=== PATIENT | male | born 1945 | race Caucasian/White ===

== ENCOUNTER 2020-09-28 08:00 | Outpatient (REF) | payer MEDICARE, SELFPAY ==
[2020-09-28 08:20] LABS: MANUAL DIFF FLAG NO
[2020-09-28 08:27] LABS: Basophils Percent Auto 0.3 % (0-2); Eosinophils Absolute Auto 0.4 X10*3/uL (0.0-0.4); Eosinophils Percent Auto 4.5 % (0-4); Hematocrit 45.9 % (42-52); Hemoglobin 15.4 g/dl (14.0-18.0); Imm Gran Abs Auto 0.05 X10*3/uL (0.00-0.03); Imm Gran Pct Auto 0.5 % (0.0-0.4); Lymphocytes Absolute Auto 2.2 X10*3/uL (1.2-4.9); Lymphocytes Percent Auto 23.1 % (20-40); Mean Corpuscular HGB Conc 33.6 g/dl (31.0-36.0); Mean Corpuscular Hemoglobin 30.6 pg (27.0-33.0); Mean Corpuscular Volume 91.1 fL (80-98); Mean Platelet Volume 10.3 fL (9.4-12.4); Monocytes Absolute Auto 0.7 X10*3/uL (0.1-1.2); Monocytes Percent Auto 7.6 % (2-11); Platelet Count 150 X10*3/uL (160-400); Red Blood Count 5.04 X10*6/uL (4.60-5.80); Red Cell Distribution Width 13.2 % (11.0-16.0); White Blood Count 9.4 X10*3/uL (4.8-10.8)
[2020-09-28 08:54] LABS: Estimated Average Glucose 166 mg/dL; Hemoglobin A1c % 7.4 %
[2020-09-28 08:55] LABS: Alanine Aminotransferase 21 U/L (0-40); Albumin Level 3.6 g/dL (3.5-5.0); Alkaline Phosphatase 84 U/L (39-117); Anion Gap 12 (12-20); Aspartate Amino Transferase 18 U/L (5-37); Bilirubin Total 0.5 mg/dL (0.0-1.0); Blood Urea Nitrogen 24 mg/dL (9-16); Calcium 8.7 mg/dL (8.4-10.2); Carbon Dioxide 26 mmol/L (22-29); Chloride 107 mmol/L (96-108); Cholesterol 155 mg/dL; Estimated Glomerular Filt Rate > 60; Glucose Random 64 mg/dL (60-115); HDL Cholesterol 43 mg/dL; LDL Cholesterol Calculated 67 mg/dl; Potassium 4.5 mmol/L (3.3-5.1); Sodium 140 mmol/L (135-145); Total Protein 5.8 g/dL (6.5-8.0); Triglycerides 228 mg/dL
[2020-09-28 08:57] LABS: Creatinine Urine 61.36 mg/dL
[2020-09-28 09:02] LABS: B Type Natriuretic Peptide 150 pg/mL (<100)
[2020-09-28 09:17] LABS: Free T4 (Free Thyroxine) 0.83 ng/dL (0.71-1.85); Prostate Specific Antigen Scr 1.73 ng/mL (<0.05-4.0); Thyroid Stimulating Hormone 1.79 uIU/mL (0.32-4.0)
[2020-09-30 04:39] LABS: Folate 14.7 ng/mL (> or = 4.0); Vitamin B12 < 146 pg/mL (200-900)
== END 2020-09-28 08:01 | disposition home or self-care (01) ==
LOC: HO.LAB 08:00
PROVIDERS: PCP Internal Medicine; Visit Provider Internal Medicine
DX: Z12.5 Encounter for screening for malignant neoplasm of prostate (principal); N40.1 Benign prostatic hyperplasia with lower urinary tract symptoms; R35.0 Frequency of micturition; I10 Essential (primary) hypertension; I25.10 Atherosclerotic heart disease of native coronary artery without angina pectoris; E78.00 Pure hypercholesterolemia, unspecified; E11.65 Type 2 diabetes mellitus with hyperglycemia; Z79.4 Long term (current) use of insulin
CPT/HCPCS: 36415; 80053; 80061; 82043; 82607; 82746; 83036; 83880; 84153; 84439; 84443; 85025

== ENCOUNTER 2021-04-01 07:31 | Outpatient (REF) | payer MEDICARE, SELFPAY ==
[2021-04-01 07:46] LABS: MANUAL DIFF FLAG NO
[2021-04-01 08:08] LABS: Basophils Absolute Auto 0.1 X10*3/uL (0.0-0.2); Basophils Percent Auto 0.6 % (0-2); Eosinophils Absolute Auto 0.6 X10*3/uL (0.0-0.4); Eosinophils Percent Auto 7.3 % (0-4); Hemoglobin 15.3 g/dl (14.0-18.0); Imm Gran Abs Auto 0.06 X10*3/uL (0.00-0.03); Imm Gran Pct Auto 0.7 % (0.0-0.4); Lymphocytes Absolute Auto 1.6 X10*3/uL (1.2-4.9); Lymphocytes Percent Auto 18.3 % (20-40); Mean Corpuscular Hemoglobin 31.4 pg (27.0-33.0); Mean Corpuscular Volume 92.2 fL (80.0-98.0); Mean Platelet Volume 10.3 fL (9.4-12.4); Monocytes Absolute Auto 0.6 X10*3/uL (0.1-1.2); Neutrophils Absolute Auto 5.7 x10*3/uL (2.0-8.3); Neutrophils Percent Auto 66.1 % (45-73); Platelet Count 161 X10*3/uL (160-400); Red Blood Count 4.88 X10*6/uL (4.60-5.80); White Blood Count 8.7 X10*3/uL (4.8-10.8)
[2021-04-01 09:12] LABS: Vitamin B12 478 pg/mL (200-900)
[2021-04-01 09:59] LABS: Creatinine Urine 67.64 mg/dL
[2021-04-05 21:41] LABS: Intrinsic Factor Antibodies Negative (Negative)
[2021-04-08 23:42] LABS: Parietal Cell Antibody <=20.0 Unit (<=20.0)
== END 2021-04-01 07:32 | disposition home or self-care (01) ==
LOC: HO.LAB 07:31
PROVIDERS: PCP Internal Medicine; Visit Provider Internal Medicine
DX: E53.8 Deficiency of other specified B group vitamins (principal); E11.65 Type 2 diabetes mellitus with hyperglycemia
CPT/HCPCS: 36415; 82607; 82746; 83516; 85025; 86340

== ENCOUNTER 2021-04-10 15:55 | Outpatient (REF) | payer MEDICARE, SELFPAY ==
--- NOTE | ~2021-04-10 | XR_ITS ---
EXAMINATION: XR CHEST CLINICAL INFORMATION: Wheezing. COMPARISON: 11/06/2016 TECHNIQUE: 2 views of the chest were obtained. FINDINGS: No convincing evidence for an acute process. Some probable chronic markings in the lower lung and anterior lung zone based on the lateral film. The cardiac silhouette is within normal limits. The hilar regions are comparable. Ill-defined central hilar structures may indicate central airways disease. XR/XR chest 2V IMPRESSION: No convincing evidence for an acute finding. Ill-defined central hilar regions may indicate central airway changes. No convincing evidence of an acute peripheral infiltrate.
== END 2021-04-10 15:56 | disposition home or self-care (01) ==
LOC: HO.XRAY 15:55
PROVIDERS: PCP Internal Medicine; Visit Provider Internal Medicine
DX: R06.2 Wheezing (principal)
CPT/HCPCS: 71046

== ENCOUNTER 2021-04-11 14:50 | Outpatient (REF) | payer MEDICARE, SELFPAY ==
--- NOTE | ~2021-04-11 | CT_ITS ---
EXAMINATION: CT HEAD WITHOUT CONTRAST CLINICAL INFORMATION: Slurred speech COMPARISON: None TECHNIQUE: Contiguous axial imaging was performed from the skull base to vertex without intravenous administration of contrast. This CT examination was performed using dose optimization techniques as appropriate, variously including the following: *Automated exposure control *Adjustment of mA and/or kV according to patient size (this includes techniques or standardized protocols for targeted exams where dose is matched to indication/reason for exam; i.e. extremities or head) *Use of iterative reconstruction technique DLP: 843 mGy-cm FINDINGS: There is no evidence of acute intracranial hemorrhage or territorial infarction. No abnormal mass effect or midline shift is seen. Stiles to white matter differentiation is well preserved. No extra-axial fluid collections are identified. The ventricles are symmetrical in size but mildly enlarged. There is diffuse periventricular hypodensity suggestive of chronic small vessel ischemic changes The osseous structures and soft tissues are normal. The mastoid air cells and visualized portions of the paranasal sinuses are well aerated. CT/CT head/brain wo con IMPRESSION: No acute intracranial process seen.
== END 2021-04-11 14:51 | disposition home or self-care (01) ==
LOC: HO.CT 14:50
PROVIDERS: PCP Internal Medicine; Visit Provider Internal Medicine
DX: R20.0 Anesthesia of skin (principal); R47.81 Slurred speech
CPT/HCPCS: 70450

== ENCOUNTER 2021-04-17 12:50 | Outpatient (REF) | payer MEDICARE, SELFPAY ==
--- NOTE | ~2021-04-17 | US_ITS ---
EXAMINATION: US EXTRACRANIAL CAROTID DUPLEX, BILATERAL CLINICAL INFORMATION: Slurred speech COMPARISON: None TECHNIQUE: Real-time ultrasound and Doppler techniques (integrating B-mode 2-D vascular images, Doppler spectral analysis and color-flow Doppler imaging) were utilized to interrogate the extracranial carotid arteries, the vertebral arteries and proximal subclavian arteries bilaterally. The degree of stenosis is determined by criteria similar to NASCET. FINDINGS: Right Side: 1. There is calcified, shadowing atherosclerotic plaque seen in the bifurcation/proximal ICA region. 2. The common carotid artery PSV proximally is 93.8 cm/s and distally 55 cm/s. 3. The proximal internal carotid artery velocities are 42.8 cm/s systolic and 13.8 cm/s diastolic. 4. The proximal external carotid artery PSV is 172 cm/s. 5. The vertebral artery shows antegrade flow. 6. The subclavian artery waveforms are normal. Left Side: 1. There is calcified, shadowing atherosclerotic plaque seen in the bifurcation/proximal ICA region. 2. The common carotid artery PSV proximally is 123 cm/s and distally 64 cm/s. 3. The proximal internal carotid artery velocities are 89.7 cm/s systolic and 26.4 cm/s diastolic. 4. The proximal external carotid artery PSV is 240 cm/s. 5. The vertebral artery was visualized on live ultrasound, and technologist report describes antegrade flow, though no image documented. 6. The subclavian artery waveforms are normal. US/US carotid duplex BI IMPRESSION: 1. RIGHT: Minimal, non-hemodynamically significant stenosis of the proximal right internal carotid artery corresponding to a 0-49% stenosis by velocity criteria. 2. LEFT: Minimal, non-hemodynamically significant stenosis of the proximal left internal carotid artery corresponding to a 0-49% stenosis by velocity criteria. 3. Probable stenosis of the left external carotid artery
== END 2021-04-17 12:51 | disposition home or self-care (01) ==
LOC: HO.HMGCX 12:50
PROVIDERS: PCP Internal Medicine; Visit Provider Internal Medicine
DX: R47.81 Slurred speech (principal); R20.0 Anesthesia of skin
CPT/HCPCS: 93880

== ENCOUNTER → 2021-05-28 09:18 | Outpatient (REF) | payer MEDICARE, SELFPAY ==
--- NOTE | 2021-05-28 09:23 | CA_ITS ---
Transthoracic Echocardiogram Patient (Last, First, Middle): Eleuterio Uribe J Gender: Male Date of : 1945 Age: 76 Procedure Date: 05/28/2021 Procedure Type: Transthoracic Echocardiogram Location: OP Height: 175.26 cm Weight: 95.26 kg BSA: 2.11 m2 Heart Rate: bpm BP: 160 / 76 mmHg Putaway Driver: DANYA Referring MD: Monica Price MD Symptoms: I25.10 - Atherosclerotic heart disease of [place] coronary... Study Quality: Fair ECG Rhythm: Sinus Conclusions: - The left ventricular systolic function is normal. The calculated ejection fraction is 57% by biplane method. - Moderate to severe left ventricular hypertrophy. - There is mild calcification of the aortic valve. - There is mild mitral valve regurgitation. - Small plaque is seen in the sinuses of Valsalva. Findings Left Ventricle Normal left ventricular cavity size. The left ventricular systolic function is normal. The calculated ejection fraction is 57% by biplane method. There is no evidence of regional wall motion abnormalities. E/E prime ratio is between 8 and 15 consistent with indeterminate filling pressures. Evidence suggests grade I (mild) diastolic dysfunction. Moderate to severe left ventricular hypertrophy. Right Ventricle Normal right ventricular cavity size and systolic function. Atria Both atria are normal in size. Aortic Valve There is a normal trileaflet aortic valve. There is mild calcification of the aortic valve. There is no aortic valve stenosis. There is no aortic valve regurgitation. Mitral Valve There is mild mitral annular calcification. There is mild mitral valve regurgitation. There is no mitral valve stenosis. Pulmonic Valve The pulmonic valve was not well visualized. Tricuspid Valve There is trace tricuspid valve regurgitation. The pulmonary artery systolic pressure is normal. Great Vessels The aortic annulus and sinuses of valsalva are normal in size. Small plaque is seen in the sinuses of Valsalva. Venous The inferior vena cava is normal in size and collapses greater than 50% with inspiration. Pericardium/Pleural There is no evidence of pericardial effusion. Prior Study Comparison Changes noted compared to prior study dated: 09/25/2013. Progression of LVH. Measurements 2D Linear Measurements IVSd: 1.76 0.6-0.9/0.6-1.0 cm LVIDd: 4.86 3.9-5.3/4.2-5.9 cm LVIDd Index: 2.30 2.4-3.2/2.2-3.1 cm/m2 LVIDs: 3.16 2.0-3.6 cm LVPWd: 1.79 0.7-1.1 cm Ao Root: 3.70 2.1-3.5 cm LA Diam: 4.20 2.7-3.8/3.0-4.0 cm LAIDs Index: 1.99 1.5-2.3 cm/m2 LV Mass: 499.23 67-162/88-224 g LV Mass Index: 236.60 43-95/49-115 g/m2 LVOT Diam: 2.20 3.0+(-)1.3 cm 2D Systolic Function EF 4C: 56.20 >55% EF 2C: 58.00 >55% EF BiP: 56.60 >55% Mitral Valve MV Pk E: 0.67 MV PK A: 0.83 MV Decel Time: 227.00 E/A: 0.80 E'Lateral: 5.11 E'Medial: 4.35 E/E' Med: 15.30 E/E' Lat: 13.10 PHT: 67.00 MVA PHT: 3.28 Decel Richardson: 2.93 Aortic Valve AoV Pk Jose: 1.38 AoV Mn Jose: 1.05 AoV VTI: 0.35 AoV Pk Grad: 8.00 Aov Mn Grad: 5.00 ALINE Cont.VTI: 2.43 LVOT LVOT Pk Jose: 0.98 LVOT Mn Jose: 0.71 LVOT VTI: 0.22 LVOT Pk Grad: 4.00 LVOT Mn Grad: 2.00 LVOT Diam: 2.20 LVOT Area: 3.80 Diastolic Function MV Pk E: 0.67 MV Pk A: 0.83 E/A: 0.80 E'Medial: 4.35 E/E' Med: 15.30 E' Laterial: 5.11 E/E' Lat: 13.10 Right Ventricle TAPSE (mm): 19.30 TVS' Jose: 12.70 Tricuspid Valve TR Pk Jose: 1.22 TR Pk Grad: 6.00 RA Press: 3.00 RVSP: 9.00 Great Vessels Aorta Ao Root-2D: 3.70 2.0-3.7 cm Ao Asc: 3.50 2.1-3.4 cm Ao Arch: 3.10 Updated in Other Vendor System with Status of Final Jan Whittington MD electronically signed on 05/30/2021 3:53:24 PM with status of Final
== END ==
LOC: HO.CARD 09:18
PROVIDERS: PCP Internal Medicine; Visit Provider Internal Medicine
DX: I25.10 Atherosclerotic heart disease of native coronary artery without angina pectoris (principal)
CPT/HCPCS: 93306

== ENCOUNTER 2021-05-28 12:56 | Emergency (ER) | payer MEDICARE, SELFPAY ==
--- NOTE | ~2021-05-28 | MR_ITS ---
EXAMINATION: MR BRAIN WITHOUT CONTRAST CLINICAL INFORMATION: Dizziness. Cerebellar cerebrovascular accident. COMPARISON: CT head from 04/11/2021. TECHNIQUE: MRI of the brain was obtained using routine sequences without contrast. FINDINGS: No focal restricted diffusion is demonstrated to suggest acute or subacute cerebral ischemia. There is a region of subcortical diffusion weighted hyperintensity involving the left precentral gyrus with increased ADC values consistent with chronic encephalomalacia. Changes of laminar necrosis in the adjacent cortex of the left precentral gyrus. Few additional scattered foci of susceptibility artifact No evidence of acute hemorrhagic products on heme-sensitive imaging. Scattered periventricular, deep white matter, and brainstem T2 FLAIR hyperintensities consistent with moderate underlying microangiopathy. Proportional prominence of the ventricles and sulcal spaces without evidence of obstructive hydrocephalus. No abnormal mass effect. No midline shift. Normal appearance of the pituitary gland. Normal positioning of the cerebellar tonsils. Normal arterial and venous vascular flow voids are present. Normal, homogeneous marrow signal. Moderate degenerative spondyloarthropathy of the visualized upper cervical spine. Mild degenerative retrolisthesis of C2 on C3. Moderate mucosal thickening of the paranasal sinuses. Moderate leftward nasal septal deviation. No signal abnormalities within the mastoids. Bilateral lens extractions. MR/MR head/brain wo con IMPRESSION: 1. No acute intracranial abnormalities. 2. Small region of chronic encephalomalacia with adjacent laminar necrosis in the left precentral gyrus. Moderate underlying microangiopathy and generalized cerebral volume loss.
[2021-05-28 13:59] VITALS: BP 153/62; PULSE 66; RESP 16; TEMP 36.9; O2SAT 96; BMI 31.1
[2021-05-28 14:09] LABS: MANUAL DIFF FLAG NO
[2021-05-28 14:14] LABS: Basophils Percent Auto 0.4 % (0-2); Eosinophils Absolute Auto 0.4 X10*3/uL (0.0-0.4); Eosinophils Percent Auto 3.8 % (0-4); Hematocrit 44.4 % (42.0-52.0); Hemoglobin 14.4 g/dl (14.0-18.0); Imm Gran Abs Auto 0.04 X10*3/uL (0.00-0.03); Imm Gran Pct Auto 0.4 % (0.0-0.4); Lymphocytes Absolute Auto 1.8 X10*3/uL (1.2-4.9); Lymphocytes Percent Auto 16.6 % (20-40); Mean Corpuscular HGB Conc 32.4 g/dl (31.0-36.0); Mean Corpuscular Hemoglobin 29.9 pg (27.0-33.0); Mean Corpuscular Volume 92.1 fL (80.0-98.0); Mean Platelet Volume 10.1 fL (9.4-12.4); Monocytes Absolute Auto 0.8 X10*3/uL (0.1-1.2); Monocytes Percent Auto 6.8 % (2-11); Neutrophils Absolute Auto 7.9 x10*3/uL (2.0-8.3); Platelet Count 148 X10*3/uL (160-400); Red Blood Count 4.82 X10*6/uL (4.60-5.80); Red Cell Distribution Width 13.8 % (11.0-16.0)
[2021-05-28 14:30] LABS: COVID-19 Test Negative (Negative)
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
[2021-05-28 14:42] LABS: Anion Gap 14 (12-20); Blood Urea Nitrogen 29 mg/dL (9-16); Calcium 8.4 mg/dL (8.4-10.2); Carbon Dioxide 24 mmol/L (22-29); Chloride 108 mmol/L (96-108); Creatinine Clr Calc Pharmacy 40.3; Estimated Glomerular Filt Rate 40; Glucose Random 43 mg/dL (60-115); Potassium 5.4 mmol/L (3.3-5.1); Sodium 141 mmol/L (135-145)
[2021-05-28 15:00] VITALS: BP 164/69; PULSE 67; RESP 16; TEMP 36.5; O2SAT 96
--- NOTE | 2021-05-28 15:01 | PC.NURSE ---
a&ox3, slight dysarthria, ataxia to the left. provider and stroke nurse in room w pt.
--- NOTE | 2021-05-28 15:09 | MHC.STROKE ---
Addendum entered by Licha Mathis RN 05/28/21 17:11: I REVIEWED MRI WITH DR POPE. HE IS RECOMMENDING TO CONTINUE ASPIRIN AND PLAVIX, PATIENT SHOULD BE EVALUATED BY PT AND OT, HE MENTIONED HIS GAIT IS OFF DUE TO DIFFICULTIES WITH SPACIAL FOOTING. PATIENT WON'T NEED A CAROTID US DONE 04/17/21, OR ECHO DONE TODAY 05/28/21 (PLEASE EVALUATE THE ECHO RESULTS WHEN AVAILABLE). I TRIED TO TOUCH BASE WITH THE BUT SHE WAS NOT IN THE ROOM. I REPORTED THIS INFORMATION TO DR BARKER. Addendum entered by Licha Mathis RN 05/28/21 15:34: MOST CURRENT LAST KNOWN WELL WAS 05/27/21 AT 1200 (YESTERDAY). Original Note: [place] [facility] [place] THE CALLED DR COLLAZO DUE HER BEING VERY DIZZY, AND SLOW WITH HIS WORDS. HE WENT TO DR COLLAZO'S OFFICE, THEN TO DR. POPE'S OFFICE FOR A STAT NEUROLOGY VISIT. DR POPE SENT HIM TO THE ED FOR A STROKE WORK UP AND MRI TO CLARIFY HIS SYMTPOMS. DR POPE DOES NOT WANT ANOTHER CT HEAD BASED ON HIS EXAM. MRI WAS NOTIFIED. SCREENING FORM COMPLETED. THE PATIENT HAS BEEN FEELING OFF FOR 10-11 DAYS, MOSTLY HIS BALANCE BUT BECAME WORSE YESTERDAY. HE WAS AMBULATED AND IS LEANING TO THE LEFT AND IS UNSTEADY ON HIS FEET, HE CANOT WALK ALONE. HE HAD A CT HEAD 04/11/21, CAROTID US 04/17/21 AND AN ECHO TODAY. PATIENT SAYS HE FEELS DRUNK BUT HE DOES NOT DRINK. IS EXPERIENCING ATAXIA AND DYSARTHRIA. HE PASSED HIS SWALLOW SCREEN PRIOR TO ANY PO, DONE DURING TRIAGE. HE HAS NOT TAKEN ANY OF HIS MEDICAITONS. DR BARKER AT THE BEDSIDE, STACY TRUJILLO, HE IS BEING TREATED. I DID PROVIDE STROKE EDUCATION AND REVIEWED ALL OF HIS RISK FACTORS. I HAVE UPDATED THE NURSES. I WILL CONTINUE TO FOLLOW.
[2021-05-28 15:11] LABS: Glucose, Whole Blood 45 mg/dL (60-115)
[2021-05-28 15:21] LABS: Glucose, Whole Blood 57 mg/dL (60-115)
[2021-05-28] MEDS: Aspirin 81 MG TAB.CHEW PO (15:22)
[2021-05-28] MEDS: Dextrose 50 % 25 GM/50 ML SYRINGE IVPUSH (15:22)
[2021-05-28] MEDS: Clopidogrel Bisulfate 75 MG TABLET PO (15:23)
[2021-05-28 15:50] VITALS: BP 167/61; PULSE 56; RESP 16; TEMP 36.3; O2SAT 97
[2021-05-28 15:52] LABS: Glucose, Whole Blood 140 mg/dL (60-115)
[2021-05-28 17:20] LABS: Glucose, Whole Blood 127 mg/dL (60-115)
[2021-05-28 18:00] VITALS: BP 177/72; PULSE 57; RESP 16; TEMP 36.6; O2SAT 97
== END 2021-05-28 19:01 | disposition home or self-care (01) ==
PROVIDERS: Emergency Provider Internal Medicine
DX: E11.649 Type 2 diabetes mellitus with hypoglycemia without coma (principal); R42 Dizziness and giddiness; I10 Essential (primary) hypertension; E78.5 Hyperlipidemia, unspecified; Z87.820 Personal history of traumatic brain injury; Z87.891 Personal history of nicotine dependence; Z79.82 Long term (current) use of aspirin; Z79.01 Long term (current) use of anticoagulants; Z79.4 Long term (current) use of insulin; Z20.822 Contact with and (suspected) exposure to COVID-19
CPT/HCPCS: 36415; 70551; 80048; 82947; 85025; 85610; 85730; 87635; 99284; 99285

== ENCOUNTER 2021-07-09 09:57 | Outpatient (REF) | payer MEDICARE, SELFPAY ==
[2021-07-09 11:49] LABS: Alanine Aminotransferase 23 U/L (0-40); Albumin Level 3.6 g/dL (3.5-5.0); Alkaline Phosphatase 107 U/L (39-117); Anion Gap 13 (12-20); Aspartate Amino Transferase 20 U/L (5-37); Bilirubin Total 0.9 mg/dL (0.0-1.0); Blood Urea Nitrogen 41 mg/dL (9-16); Calcium 8.9 mg/dL (8.4-10.2); Carbon Dioxide 22 mmol/L (22-29); Chloride 106 mmol/L (96-108); Estimated Glomerular Filt Rate 35; Glucose Random 211 mg/dL (60-115); Potassium 5.6 mmol/L (3.3-5.1); Sodium 135 mmol/L (135-145); Total Protein 5.7 g/dL (6.5-8.0)
== END 2021-07-09 09:58 | disposition home or self-care (01) ==
LOC: HO.LAB 09:57
PROVIDERS: PCP Internal Medicine; Visit Provider Internal Medicine
DX: I10 Essential (primary) hypertension (principal)
CPT/HCPCS: 36415; 80053

== ENCOUNTER 2021-07-17 08:49 | Outpatient (REF) | payer MEDICARE, SELFPAY ==
[2021-07-17 10:51] LABS: Alanine Aminotransferase 35 U/L (0-40); Albumin Level 3.5 g/dL (3.5-5.0); Alkaline Phosphatase 119 U/L (39-117); Anion Gap 14 (12-20); Aspartate Amino Transferase 22 U/L (5-37); Bilirubin Total 0.8 mg/dL (0.0-1.0); Blood Urea Nitrogen 33 mg/dL (9-16); Calcium 8.9 mg/dL (8.4-10.2); Carbon Dioxide 23 mmol/L (22-29); Chloride 105 mmol/L (96-108); Estimated Glomerular Filt Rate 42; Glucose Random 191 mg/dL (60-115); Potassium 5.4 mmol/L (3.3-5.1); Sodium 137 mmol/L (135-145); Total Protein 5.8 g/dL (6.5-8.0)
== END 2021-07-17 08:50 | disposition home or self-care (01) ==
LOC: HO.LAB 08:49
PROVIDERS: PCP Internal Medicine; Visit Provider Internal Medicine
DX: R42 Dizziness and giddiness (principal)
CPT/HCPCS: 36415; 80053

== ENCOUNTER 2022-02-19 08:08 | Outpatient (REF) | payer MEDICARE, SELFPAY ==
[2022-02-19 08:24] LABS: MANUAL DIFF FLAG NO
[2022-02-19 08:42] LABS: Basophils Absolute Auto 0.1 X10*3/uL (0.0-0.2); Eosinophils Absolute Auto 0.4 X10*3/uL (0.0-0.4); Eosinophils Percent Auto 4.8 % (0-4); Hematocrit 41.9 % (42.0-52.0); Hemoglobin 13.7 g/dl (14.0-18.0); Imm Gran Abs Auto 0.07 X10*3/uL (0.00-0.03); Lymphocytes Absolute Auto 1.5 X10*3/uL (1.2-4.9); Lymphocytes Percent Auto 20.2 % (20-40); Mean Corpuscular HGB Conc 32.7 g/dl (31.0-36.0); Mean Corpuscular Hemoglobin 29.1 pg (27.0-33.0); Mean Corpuscular Volume 89.1 fL (80.0-98.0); Mean Platelet Volume 10.2 fL (9.4-12.4); Monocytes Absolute Auto 0.7 X10*3/uL (0.1-1.2); Neutrophils Absolute Auto 4.6 x10*3/uL (2.0-8.3); Platelet Count 187 X10*3/uL (160-400); Red Cell Distribution Width 13.6 % (11.0-16.0); White Blood Count 7.2 X10*3/uL (4.8-10.8)
[2022-02-19 08:57] LABS: Estimated Average Glucose 203 mg/dL; Hemoglobin A1c % 8.7 %
[2022-02-19 09:43] LABS: Folate 7.3 ng/mL (> or = 4.0); Vitamin B12 1001 pg/mL (200-900)
[2022-02-19 09:49] LABS: Alanine Aminotransferase 29 U/L (0-40); Albumin Level 3.9 g/dL (3.5-5.0); Alkaline Phosphatase 99 U/L (39-117); Aspartate Amino Transferase 21 U/L (5-37); Bilirubin Total 0.5 mg/dL (0.0-1.0); Blood Urea Nitrogen 48 mg/dL (9-16); Calcium 9.2 mg/dL (8.4-10.2); Cholesterol 135 mg/dL; Estimated Glomerular Filt Rate 34; Glucose Random 160 mg/dL (60-115); HDL Cholesterol 43 mg/dL; LDL Cholesterol Calculated 70 mg/dl; Thyroid Stimulating Hormone 1.74 uIU/mL (0.32-4.0); Total Protein 6.4 g/dL (6.5-8.0); Triglycerides 113 mg/dL
[2022-02-19 10:09] LABS: Anion Gap 13 (12-20); Carbon Dioxide 21 mmol/L (22-29); Chloride 111 mmol/L (96-108); Potassium 6.1 mmol/L (3.3-5.1); Sodium 139 mmol/L (135-145)
== END 2022-02-19 08:09 | disposition home or self-care (01) ==
LOC: HO.LAB 08:08
PROVIDERS: PCP Internal Medicine; Visit Provider Internal Medicine
DX: E11.65 Type 2 diabetes mellitus with hyperglycemia (principal); E78.00 Pure hypercholesterolemia, unspecified; Z79.4 Long term (current) use of insulin
CPT/HCPCS: 36415; 80053; 80061; 82607; 82746; 83036; 84439; 84443; 85025

== ENCOUNTER 2022-02-20 07:43 | Outpatient (REF) | payer MEDICARE, SELFPAY ==
[2022-02-20 09:01] LABS: Anion Gap 15 (12-20); Blood Urea Nitrogen 46 mg/dL (9-16); Calcium 9.2 mg/dL (8.4-10.2); Carbon Dioxide 23 mmol/L (22-29); Chloride 107 mmol/L (96-108); Estimated Glomerular Filt Rate 40; Glucose Random 129 mg/dL (60-115); Potassium 5.3 mmol/L (3.3-5.1); Sodium 140 mmol/L (135-145)
== END 2022-02-20 07:44 | disposition home or self-care (01) ==
LOC: HO.LAB 07:43
PROVIDERS: PCP Internal Medicine; Visit Provider Internal Medicine
DX: E87.5 Hyperkalemia (principal)
CPT/HCPCS: 36415; 80048

== ENCOUNTER → 2022-09-07 13:43 | Outpatient (BNVA) | payer MEDICARE, SELFPAY | PROVIDERS: PCP Internal Medicine; Visit Provider Internal Medicine Cardiovascular Disease | DX: R07.9 Chest pain, unspecified (principal) | CPT/HCPCS: 93005; 99202 ==

== ENCOUNTER 2022-09-11 10:41 | Outpatient (REF) | payer MEDICARE, SELFPAY ==
--- NOTE | ~2022-09-11 | XR_ITS ---
EXAMINATION: XR CHEST CLINICAL INFORMATION: Coronary artery disease COMPARISON: Previous chest x-ray most recent April 2021 TECHNIQUE: 2 views of the chest were obtained. FINDINGS: The cardiac and mediastinal contours are stable. The lungs are clear. No pleural effusion or pneumothorax. Degenerative changes of the spine. XR/XR chest 2V IMPRESSION: No evidence for acute disease in the chest.
--- NOTE | 2022-09-11 10:53 | CA_ITS ---
Transthoracic Echocardiogram Patient (Last, First, Middle): Eleuterio Uribe J Gender: Male Date of : 1945 Age: 77 Procedure Date: 09/11/2022 Procedure Type: Transthoracic Echocardiogram Location: OP Height: 167.64 cm Weight: 85.28 kg BSA: 1.95 m2 Heart Rate: 49 bpm BP: 120 / 55 mmHg Cardroom Plastic Card Grader: MADDIE Referring MD: Monica Price MD Symptoms: I25.10 - Atherosclerotic heart disease of [place] coronary artery without... Study Quality: Fair ECG Rhythm: Bradycardia Conclusions: - Normal left ventricular size and systolic function. There is moderately increased left ventricular wall thickness. The visually estimated ejection fraction is between 55-60%. - E/E prime ratio is between 8 and 15 consistent with indeterminate filling pressures. - Normal right ventricular cavity size and systolic function. - The left atrium is moderately dilated. The right atrium is normal in size. - There is mild dilatation of the ascending aorta measuring 3.70 cm. Findings Left Ventricle Normal left ventricular size and systolic function. There is moderately increased left ventricular wall thickness. The visually estimated ejection fraction is between 55-60%. There is no evidence of regional wall motion abnormalities. Abnormal diastolic function is noted. Spectral Doppler is indicative of an impaired relaxation filling pattern. E/E prime ratio is between 8 and 15 consistent with indeterminate filling pressures. Right Ventricle Normal right ventricular cavity size and systolic function. Atria The left atrium is moderately dilated. The right atrium is normal in size. Aortic Valve There is a normal trileaflet aortic valve. There is mild calcification of the aortic valve. There is no aortic valve stenosis. There is no aortic valve regurgitation. Mitral Valve The mitral valve appears normal. There is trace mitral valve regurgitation. There is no mitral valve stenosis. Pulmonic Valve Normal pulmonic valve structure and function. There is trace pulmonic valve regurgitation. Tricuspid Valve Normal tricuspid valve structure and function. There is no tricuspid valve regurgitation. Tricuspid regurgitation envelope is inadequate for calculation of right ventricular systolic pressure. Normal right atrial pressure. Great Vessels There is mild dilatation of the ascending aorta measuring 3.70 cm. The visualized portions of the pulmonary artery and branches are normal. Venous The inferior vena cava is normal in size and collapses greater than 50% with inspiration. Pericardium/Pleural There is no evidence of pericardial effusion. Prior Study Comparison No significant change compared to prior study dated: 05/28/2021. Measurements 2D Linear Measurements IVSd: 1.56 0.6-0.9/0.6-1.0 cm LVIDd: 4.97 3.9-5.3/4.2-5.9 cm LVIDd Index: 2.55 2.4-3.2/2.2-3.1 cm/m2 LVIDs: 3.51 2.0-3.6 cm LVPWd: 1.35 0.7-1.1 cm LA Diam: 3.90 2.7-3.8/3.0-4.0 cm LAIDs Index: 2.00 1.5-2.3 cm/m2 LV Mass: 381.20 67-162/88-224 g LV Mass Index: 195.49 43-95/49-115 g/m2 LVOT Diam: 1.90 3.0+(-)1.3 cm 2D Systolic Function EF 4C: 54.50 >55% EF 2C: 58.70 >55% EF BiP: 55.50 >55% Mitral Valve MV Pk E: 0.70 MV PK A: 0.90 MV Decel Time: 217.00 E/A: 0.80 E'Lateral: 6.85 E'Medial: 5.77 E/E' Med: 12.20 E/E' Lat: 10.30 PHT: 64.00 MVA PHT: 3.44 Decel [place]: 3.23 Aortic Valve AoV Pk Jose: 1.21 AoV Mn Jose: 0.90 AoV VTI: 0.33 AoV Pk Grad: 6.00 Aov Mn Grad: 4.00 ALINE Cont.VTI: 1.89 LVOT LVOT Pk Jose: 0.86 LVOT Mn Jose: 0.60 LVOT VTI: 0.22 LVOT Pk Grad: 3.00 LVOT Mn Grad: 2.00 LVOT Diam: 1.90 LVOT Area: 2.84 Diastolic Function MV Pk E: 0.70 MV Pk A: 0.90 E/A: 0.80 E'Medial: 5.77 E/E' Med: 12.20 E' Laterial: 6.85 E/E' Lat: 10.30 Right Ventricle TAPSE (mm): 19.80 TVS' Jose: 11.60 Tricuspid Valve RA Press: 3.00 Great Vessels Aorta Sinus of Valsalva: 3.70 2.0-3.5 cm Ao Asc: 3.70 2.1-3.4 cm Pulmonary Valve PV Pk Jose: 0.80 Peak PV Grad: 3.00 Updated in Other Vendor System with Status of Final Mayito Valenzuela MD electronically signed on 09/13/2022 6:52:26 PM with status of Final
[2022-09-11 11:48] LABS: Hematocrit 41.8 % (42.0-52.0); Hemoglobin 13.7 g/dl (14.0-18.0); Mean Corpuscular HGB Conc 32.8 g/dl (31.0-36.0); Mean Corpuscular Volume 91.5 fL (80.0-98.0); Mean Platelet Volume 10.6 fL (9.4-12.4); Platelet Count 140 X10*3/uL (160-400); Red Blood Count 4.57 X10*6/uL (4.60-5.80); Red Cell Distribution Width 12.8 % (11.0-16.0)
[2022-09-11 11:56] LABS: Prothrombin Time 10.9 SEC (10.0-13.1)
[2022-09-11 12:38] LABS: Anion Gap 11 (12-20); Blood Urea Nitrogen 53 mg/dL (9-16); Calcium 8.9 mg/dL (8.4-10.2); Carbon Dioxide 25 mmol/L (22-29); Chloride 107 mmol/L (96-108); Estimated Glomerular Filt Rate 29; Glucose Random 113 mg/dL (60-115); Potassium 5.2 mmol/L (3.3-5.1); Sodium 138 mmol/L (135-145)
== END 2022-09-11 10:42 | disposition home or self-care (01) ==
LOC: HO.LAB 10:41
PROVIDERS: PCP Internal Medicine; Visit Provider Internal Medicine Cardiovascular Disease
DX: R07.9 Chest pain, unspecified (principal); I25.10 Atherosclerotic heart disease of native coronary artery without angina pectoris
CPT/HCPCS: 36415; 71046; 80048; 85027; 85610; 93306

== ENCOUNTER 2022-09-19 08:35 | Outpatient (REF) | payer MEDICARE, SELFPAY ==
[2022-09-19 10:09] LABS: Anion Gap 13 (12-20); Blood Urea Nitrogen 75 mg/dL (9-16); Calcium 9.4 mg/dL (8.4-10.2); Carbon Dioxide 22 mmol/L (22-29); Chloride 105 mmol/L (96-108); Estimated Glomerular Filt Rate 26; Glucose Random 152 mg/dL (60-115); Sodium 135 mmol/L (135-145)
== END 2022-09-19 08:36 | disposition home or self-care (01) ==
LOC: HO.LAB 08:35
PROVIDERS: PCP Internal Medicine; Visit Provider Nurse Practitioner Family
DX: N18.9 Chronic kidney disease, unspecified (principal)
CPT/HCPCS: 36415; 80048

== ENCOUNTER → 2022-10-07 11:28 | Outpatient (BNVA) | payer MEDICARE, SELFPAY | PROVIDERS: PCP Internal Medicine; Visit Provider Internal Medicine Cardiovascular Disease | DX: I25.10 Atherosclerotic heart disease of native coronary artery without angina pectoris (principal) | CPT/HCPCS: 99212 ==

== ENCOUNTER 2022-10-12 12:23 | Outpatient (AMB) | payer MEDICARE, SELFPAY ==
--- NOTE | 2022-10-12 12:30 | MHC.AMNUTRGE ---
Intake VS Expanded 10/12/22 12:32 Height 5 ft 8 in Weight 189 lb 9.561 oz BMI 28.8 Intake Visit Reasons: Coronary artery disease Allergies sitagliptin [Januvia] Allergy (Intermediate, Verified 09/01/22 08:41) Stomach Upset lisinopril Adverse Reaction (Intermediate, Verified 09/01/22 08:41) hyperkalemia HPI Nutrition Presentation Details Pt presents for MNT for CVD. 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 Pt reports having a good appetite and is working on reducing pastries and breads. Pt reports working on maintaining good blood glucose level, bring written record with BG ranging 100-120 in the fasting state and post meals 167-225 mg/dl B: bread with eggs, sausage, kielbasa, coffee with cream no sugar added L: burger with fries or mashed potatoes with beef, green beans,w ater D: same as lunch snack : sherbert, crackers, fruits , popcorn fish: 0-1/wk fruits: 2+/d non starchy ve: 3+ serving/d milk: 0-1/d fried foods: 3 x/wk ODT-Jaeclll-Mz.Jeor Equation Height 5 ft 8 in Weight 190 lb Resting Metabolic Rate 1556.78 Calculated Activity Level Sedentary Calories Needed to Maintain Weight 1868.14 Diagnosis Nutrition problem #1 excessive energy intake (saturated fats) As related to (etiology) #1 diagnosis As evidenced by (sign/symptom) #1 food recall Most Recent Diabetes Results: Creatinine 2.40 mg/dL (0.5-1.4) H 09/19/22 Blood Urea Nitrogen 75 mg/dL (9-16) H 09/19/22 Sodium 135 mmol/L (135-145) 09/19/22 Potassium 5.0 mmol/L (3.3-5.1) 09/19/22 Chloride 105 mmol/L (96-108) 09/19/22 Carbon Dioxide 22 mmol/L (22-29) 09/19/22 Calcium 9.4 mg/dL (8.4-10.2) 09/19/22 [facility] Medical History BPH (benign prostatic hyperplasia) Hypercholesterolemia Hypertension Hypoglycemia associated with diabetes Peripheral vascular disease PUD (peptic ulcer disease) Type 2 diabetes mellitus with hyperglycemia Surgical History Amputated toe of left foot Previous back surgery Social History Housing: House Alcohol intake: never Patient Tobacco Use Status: Former Tobacco user Tobacco use type: Cigarette e-Cigarette/Vaping Use: Never Used Second Hand Smoke Exposure: No service: No Current occupational status: retired Cognitive needs: No Hearing needs: No Vision needs: No Assessment & Plan Assessment & Plan (1) CAD (coronary artery disease): Code(s): I25.10 - Atherosclerotic heart disease of [place] coronary artery without angina pectoris Qualifiers: Coronary Disease-Associated Artery/Lesion type: [place] artery [place] vs. transplanted heart: [place] heart Associated angina: without angina Qualified Code(s): I25.10 - Atherosclerotic heart disease of [place] coronary artery without angina pectoris (2) Type 2 diabetes mellitus with hyperglycemia: Comment: Dr. Hicks Code(s): E11.65 - Type 2 diabetes mellitus with hyperglycemia Qualifiers: Diabetes mellitus halfway insulin use: with parts counterman use Qualified Code(s): E11.65 - Type 2 diabetes mellitus with hyperglycemia; Z79.4 - jail (current) use of insulin Plan used wt 93 kg Est kcal needs as per MSJ: 3875-7185 (40% carb, 30% protein/fat) Est fluid needs as per 25-30 ml/d: 2325 -2790 Est prot per day as per 1 g/kg bw: 93 Recommend fiber intake : 8-10 g per day and gradually increase 35-38 g for men or as tolerated Recommend sodium intake per day : less than 2000 mg Educated patient on: ( R = reviewed V = verbalizes understanding N/R = needs review N/A = not applicable Food sources of carbohydrate, adequate serving sizes and its role in various health conditions: R Differences between complex carbohydrates a simple carbohydrates, role of fiber in diet: R Differences between types of fats and role in diet (mono on saturated fat fatty acids, saturated fatty acids, trans fats): R Food sources of sodium in salt and healthy modifications for heart health in kidney health: R Vitamins and minerals: R Healthy plate method concept: R Physical activity: Benefits a precaution: R Hypoglycemia protocol (rule of 15): R Dietary prevention of Hyperglycemia: R Patient Instructions: Reduce on saturated fats and include MUFA/PUFA sources of foods Have a fruit in place as snack Follow healthy plate method at dinner continue keeping physically active as able. Coding Level of Care Code Nutr Indiv Intake (36543) Diagnoses CAD (coronary artery disease) I25.10 Coronary Disease-Associated Artery/Lesion type: [place] artery [place] vs. transplanted heart: [place] heart Associated angina: without angina Type 2 diabetes mellitus with hyperglycemia E11.65; Z79.4 Diabetes mellitus parts counterman insulin use: with parts counterman use Time Spent (min) 40
[2022-10-12 12:32] VITALS: BMI 28.8
[2022-10-12 13:45] VITALS: BMI 28.9
== END 2022-10-12 13:24 | disposition home or self-care (01) ==
LOC: HO.ENCR 12:23
PROVIDERS: PCP Internal Medicine; Visit Provider Dietitian, Registered
DX: I25.10 Atherosclerotic heart disease of native coronary artery without angina pectoris (principal); E11.65 Type 2 diabetes mellitus with hyperglycemia; Z79.4 Long term (current) use of insulin

== ENCOUNTER → 2022-10-12 12:23 | Outpatient (BNVA) | payer MEDICARE, SELFPAY | PROVIDERS: PCP Internal Medicine; Visit Provider Dietitian, Registered | DX: E11.649 Type 2 diabetes mellitus with hypoglycemia without coma (principal); E11.65 Type 2 diabetes mellitus with hyperglycemia; I25.10 Atherosclerotic heart disease of native coronary artery without angina pectoris; I10 Essential (primary) hypertension; Z79.4 Long term (current) use of insulin; Z71.3 Dietary counseling and surveillance | CPT/HCPCS: 97802 ==

== ENCOUNTER 2022-11-06 08:25 | Outpatient (AMB) | payer MEDICARE, SELFPAY ==
--- NOTE | 2022-11-06 08:28 | AM.OFFVISNUR ---
Intake Intake Visit Reasons: B12 Shot Allergies sitagliptin [Januvia] Allergy (Intermediate, Verified 09/01/22 08:41) Stomach Upset lisinopril Adverse Reaction (Intermediate, Verified 09/01/22 08:41) hyperkalemia Office Meds cyanocobalamin (vitamin B-12) Performing Provider: Monica Price MD Administered by: Connie Ramirez RN on 11/06/22 08:35 Dose Route Admin Location Lot Number Expiration Date [facility] Packing Attendant 1,000 mcg IM left deltoid [id number] 05/06/24 50594-835-34 [employer] Coding Diagnoses Assessment & Plan Assessment & Plan Orders: Orders AMB Vitamin B12 Injection Patient Supplied Today E53.8 - Deficiency of other specified B group vitamins
== END 2022-11-06 08:45 | disposition home or self-care (01) ==
PROVIDERS: PCP Internal Medicine; Visit Provider Internal Medicine
DX: E53.8 Deficiency of other specified B group vitamins (principal)
CPT/HCPCS: 96372; J3420

== ENCOUNTER 2022-11-12 07:12 | Outpatient (REF) | payer MEDICARE, SELFPAY ==
[2022-11-12 09:37] LABS: Alanine Aminotransferase 35 U/L (0-40); Albumin Level 3.8 g/dL (3.5-5.0); Alkaline Phosphatase 74 U/L (39-117); Anion Gap 13 (12-20); Aspartate Amino Transferase 22 U/L (5-37); Bilirubin Total 0.5 mg/dL (0.0-1.0); Blood Urea Nitrogen 49 mg/dL (9-16); Calcium 8.9 mg/dL (8.4-10.2); Carbon Dioxide 26 mmol/L (22-29); Chloride 105 mmol/L (96-108); Estimated Glomerular Filt Rate 36; Glucose Random 107 mg/dL (60-115); Potassium 4.6 mmol/L (3.3-5.1); Sodium 139 mmol/L (135-145); Total Protein 6.4 g/dL (6.5-8.0)
== END 2022-11-12 07:13 | disposition home or self-care (01) ==
LOC: HO.LAB 07:12
PROVIDERS: PCP Internal Medicine; Visit Provider Internal Medicine
DX: N18.9 Chronic kidney disease, unspecified (principal)
CPT/HCPCS: 36415; 80053

== ENCOUNTER 2022-11-13 08:49 | Outpatient (REF) | payer MEDICARE, SELFPAY ==
--- NOTE | ~2022-11-13 | US_ITS ---
EXAMINATION: US RETROPERITONEAL LIMITED (RENAL ONLY) CLINICAL INFORMATION: Chronic kidney disease, unspecified. COMPARISON: Ultrasound kidneys and bladder 02/01/2019. Ultrasound abdomen 11/11/2010. MRA abdomen 11/08/2007. TECHNIQUE: Real-time imaging of the kidneys. Limited visualization due to bowel gas. FINDINGS: RIGHT KIDNEY: 10.4 x 5.9 x 5.2 cm (SAG x AP x TRV). No hydronephrosis. Renal cortical thickness is normal. Renal hilum appears echogenic. No obstructing renal calculi identified. LEFT KIDNEY: 11.0 x 5.3 x 5.0 cm (SAG x AP x TRV). No hydronephrosis. Renal cortical thickness is normal. Renal hilum appears echogenic. No obstructing renal calculi identified. US/US renal BI IMPRESSION: No hydronephrosis. Renal hilum appears echogenic. No obstructing renal calculi identified.
== END 2022-11-13 08:50 | disposition home or self-care (01) ==
LOC: HO.US 08:49
PROVIDERS: Visit Provider Internal Medicine
DX: N18.9 Chronic kidney disease, unspecified (principal)
CPT/HCPCS: 76775

== ENCOUNTER 2022-12-15 09:08 | Outpatient (AMB) | payer MEDICARE, SELFPAY ==
[2022-12-15 09:22] VITALS: BP 148/82; PULSE 65; O2SAT 96; BMI 28.3
--- NOTE | 2022-12-15 09:22 | A.OFFPC_ITS ---
Vital Signs 12/15/22 09:22 Height 5 ft 8 in Weight 186 lb BMI 28.3 BP 148/82 H Blood Pressure Location Lt brachial Position Sitting Pulse 65 Pulse Source Pulse Oximeter Pulse Oximetry (%) 96 Oxygen Delivery Method Room Air Intake Visit Reasons: CAD, diabetes mellitus Allergies sitagliptin [Januvia] Allergy (Intermediate, Verified 12/15/22 09:23) Stomach Upset lisinopril Adverse Reaction (Intermediate, Verified 12/15/22 09:23) hyperkalemia Medication List - Last Reconciled 12/15/22 by Monica Price MD albuterol sulfate 90 mcg/actuation (ProAir HFA) 2 puffs inhalation Q6H PRN amlodipine 10 mg PO DAILY 90 days aspirin (Adult Aspirin Regimen) 81 mg PO DAILY atenolol 25 mg PO DAILY 90 days atorvastatin 20 mg PO DAILY blood sugar diagnostic As directed check the blood sugar TID blood-glucose meter As directed blood-glucose meter (Vitasoft Ultra2 Meter kit) As directed check the blood sugar TID clopidogrel 75 mg PO DAILY 90 days kb.stocking,knee,reg,xlrg As directed 20-30 mm HG cyanocobalamin (vitamin B-12) 1,000 mcg IM Q4W [Diabetic inserts As directed] [Diabetic shoes As directed] flash glucose scanning reader (BumpTopStyle Sasha 2 [place]) As directed flash glucose sensor (FreeStyle Sasha 2 Sensor kit) As directed check the BS TID insulin glargine (Lantus Solostar U-100 Insulin) 15 units (0.15 mL) subcut DAILY 90 days isosorbide mononitrate ER 30 mg PO DAILY lactulose 20 grams (30 mL) PO BID lancets (Vitasoft Delica Lancets) As directed check the blood sugar TID pen needle, diabetic (BD Ultra-Fine Mini Pen Needle) As directed three times per day tamsulosin (Flomax) 0.4 mg PO BEDTIME tamsulosin 0.4 mg PO DAILY valacyclovir 1,000 mg PO Q8H 7 days vancomycin in 0.9 % sodium chl 750 mg/250 mL 1 g IV Q12H Tobacco use date assessed: 09/01/22 Fall risk assessment: No Falls in past year Last assessed Fall Risk: 12/15/22 Dental Screening Dental Screen Date: 09/12/23 Did you have a dental visit in the last 12 months?: Yes Did you have a dental problem in the last 6 months where you did not have access to dental care?: No Was dental information given to patient?: Patient has dentist HPI CAD, diabetes mellitus HPI Details 77-year-old overweight male with control led diabetes mellitus coronary artery disease(1989 stent, 2004 stent placement) hypertension hypercholesterolemia BPH last seen in August 2022. Patient is here for follow-up. Review of the notes patient has met with cardiology in October 2022 post cardiac catheterization showing 70% stenosis of the proximal LAD 80% disease in the mid circumflex 70% stenosis some the OM 1 and diffuse. On isosorbide therapy presently taking atenolol and amlodipine presently medical management if unrelenting anginal symptoms consider PCI therapy PFSH Medical History BPH (benign prostatic hyperplasia) Hypercholesterolemia Hypertension Hypoglycemia associated with diabetes Peripheral vascular disease PUD (peptic ulcer disease) Type 2 diabetes mellitus with hyperglycemia Surgical History Amputated toe of left foot Previous back surgery Social History Housing: House Alcohol intake: never Patient Tobacco Use Status: Former Tobacco user Tobacco use type: Cigarette e-Cigarette/Vaping Use: Never Used Second Hand Smoke Exposure: No service: No Current occupational status: retired Cognitive needs: No Hearing needs: No Vision needs: No Questionnaire PHQ-9 Over the last 2 weeks, how often have you been bothered by any of the following problems? 1. Little interest or pleasure in doing things: not at all 2. Feeling down, depressed, or hopeless: not at all 3. Trouble falling or staying asleep, or sleeping too much: not at all 4. Feeling tired or having little energy: not at all 5. Poor appetite or overeating: not at all 6. Feeling bad about yourself - or that you are a failure or have let yourself or your family down: not at all 7. Trouble concentrating on things, such as reading the newspaper or watching television: not at all 8. Moving or speaking so slowly that other people could have noticed. Or the opposite - being so fidgety or restless that you have been moving around a lot more than usual: not at all 9. Thoughts that you would be better off or of hurting yourself in some way: not at all Total score: 0 Depression Screening Interpretation: Negative Source: Developed by Drs. Wilner Washburn, Lady Harrington, Shashank Tee and colleagues, with an educational liane from [employer]. Thrive Questionnaire Date Thrive assessed: 09/01/22 AUDIT C Alcohol Use Questionnaire (AUDIT-C) 1. How often do you have a drink containing alcohol?: Never 3. How often do you have six or more drinks on one occasion?: Never Total Score: 0 CHRISTI-7 AMB Questionnaire CHRISTI-7 Date CHRISTI - 7 assessed: 09/01/22 Source: Developed by Drs. Wilner Washburn, Shashank Lewis and colleagues, with an educational liane from [employer]. Physical exam (Primary Care) Vital Signs: Last Vital Signs Pulse 65 12/15/22 09:22 BP 148/82 H 12/15/22 09:22 Pulse Ox 96 12/15/22 09:22 Oxygen Delivery Method Room Air 12/15/22 09:22 BMI result Body Mass Index 28.3 Tobacco/Smoking Status: Tobacco use Status Tobacco use date assessed 09/01/22 12/15/22 09:24 Patient Tobacco Use Status Former Tobacco user 12/15/22 09:24 Tobacco use type Cigarette 12/15/22 09:24 e-Cigarette/Vaping Use Never Used 12/15/22 09:24 PHQ-9: PHQ-9 Score PHQ-9: Total score 0 12/15/22 09:45 Depression Screening Interpretation: Negative Thrive Assessment: Date of Thrive Assessment Date Thrive assessed 09/01/22 12/15/22 09:24 Const General: alert; No acute distress Eyes Conjunctivae: conjunctivae normal Resp Auscultation: clear to auscultation bilaterally Cardio Rate: regular rate Rhythm: regular rhythm GI Inspection: Yes normal to inspection Extrem General: Yes normal to inspection and No edema Office Meds cyanocobalamin (vitamin B-12) 1,000 mcg/mL injection solution Performing Provider: Monica Price MD [facility] Administered by: Lexi Doherty RN on 12/15/22 09:40 Dose Route Admin Location Dispensed Lot Number Expiration Date NDC Entry Engineer 1,000 mcg IM left deltoid 1 mL [id number] 06/02/24 26322-238-60 [employer] Results AMB Hemoglobin A1c AMB Hemoglobin A1c 6.1 % Last Edit by Demetria Gillis CMA on 12/15/22 09 :46 Results Reviewed Results Reviewed: Laboratory Last Values Hgb A1c (Clinic) 6.1 % (4.0-6.0) H 12/15/22 09:24 Assessment and Plan Assessment & Plan (1) Vitamin B12 deficiency: Code(s): E53.8 - Deficiency of other specified B group vitamins Plan: Patient had his monthly being injection (2) Type 2 diabetes mellitus with hyperglycemia: Comment: Dr. Hicks Code(s): E11.65 - Type 2 diabetes mellitus with hyperglycemia Qualifiers: Diabetes mellitus termite control representative insulin use: with termite control representative use Qualified Code(s): E11.65 - Type 2 diabetes mellitus with hyperglycemia; Z79.4 - retirement (current) use of insulin Plan: Decrease the amount of carbohydrate intake, pasta, bread, rice and potatoes are all sugar and that is aside from all the sweet stuff, remember that fruits are good but they are Sweet also. Hemoglobin A1c goal of less than 7.0 patient he is on insulin Lantus 15 units once a day (3) BPH (benign prostatic hyperplasia): Code(s): N40.0 - Benign prostatic hyperplasia without lower urinary tract symptoms Qualifiers: Lower urinary tract symptom presence: symptoms present Lower urinary tract symptom detail: urinary frequency Qualified Code(s): N40.1 - Benign prostatic hyperplasia with lower urinary tract symptoms; R35.0 - Frequency of micturition Plan: Continue with tamsulosin (4) Hypertension: Code(s): I10 - Essential (primary) hypertension Qualifiers: Hypertension type: essential hypertension Qualified Code(s): I10 - Essential (primary) hypertension Plan: Continue with blood pressure medication. Decrease salt intake and exercise on amlodipine 10 mg once a day atenolol 25 mg once a day. BP high here and so will continue to monitor (5) CAD (coronary artery disease): Comment: Stent placement 1989, 2004, cardiac cath 2022 multivessel disease Code(s): I25.10 - Atherosclerotic heart disease of [place] coronary artery without angina pectoris Qualifiers: Coronary Disease-Associated Artery/Lesion type: [place] artery [place] vs. transplanted heart: [place] heart Associated angina: without angina Qualified Code(s): I25.10 - Atherosclerotic heart disease of [place] coronary artery without angina pectoris Plan: Control the cholesterol, weight, blood pressure, diabetes (6) Hypercholesterolemia: Code(s): E78.00 - Pure hypercholesterolemia, unspecified Plan: Avoid fried foods, chicken skin, eggs, butter margarine, pastries and meat. Be it pork or beef they have a lot of cholesterol LDL goal of less than 70 and triglyceride of less than 150 patient is on atorvastatin 20 mg once a day February 2023 last blood work (7) CKD (chronic kidney disease): Code(s): N18.9 - Chronic kidney disease, unspecified Plan: Patient has been referred to Nephrology (8) Ascending aorta dilatation: Comment: September 2022Normal left ventricular size and systolic function. There is moderately increased left ventricular wall thickness. The visually estimated ejection fraction is between 55-60%. - E/E prime ratio is between 8 and 15 consistent with indeterminate filling pressures. - Normal right ventricular cavity size and systolic function. - The left atrium is moderately dilated. The right atrium is normal in size. - There is mild dilatation of the ascending aorta measuring 3.70 Code(s): I77.810 - Thoracic aortic ectasia Plan: Continue to monitor Orders: Orders AMB Hemoglobin A1c Today Z13.9 - Encounter for screening, unspecified Complete Blood Count Auto Diff 2 Months E11.65 - Type 2 diabetes mellitus with hyperglycemia, Z79.4 - retirement (current) use of insulin Comprehensive Met. Panel 2 Months E11.65 - Type 2 diabetes mellitus with h yperglycemia, Z79.4 - long term care social worker (current) use of insulin Free T4 (Free Thyroxine) 2 Months E11.65 - Type 2 diabetes mellitus with hyperglycemia, Z79.4 - retirement (current) use of insulin Thyroid Stimulating Hormone 2 Months E11.65 - Type 2 diabetes mellitus with hyperglycemia, Z79.4 - long term care social worker (current) use of insulin Microalbumin, Random (w Creat) 2 Months E11.65 - Type 2 diabetes mellitus with hyperglycemia, Z79.4 - long term care social worker (current) use of insulin Vitamin B12 and Folate 2 Months E11.65 - Type 2 diabetes mellitus with hyperglycemia, Z79.4 - long term care social worker (current) use of insulin AMB Vitamin B12 Injection Patient Supplied Today E53.8 - Deficiency of other specified B group vitamins Lipid Panel 2 Months E11.65 - Type 2 diabetes mellitus with hyperglycemia, E78.00 - Pure hypercholesterolemia, unspecified, Z79.4 - long term care social worker (current) use of insulin Creatinine Urine 2 Months E11.65 - Type 2 diabetes mellitus with hyperglycemia, Z79.4 - long term care social worker (current) use of insulin Medications: Refilled [Diabetic shoes] As directed 1 ea 0RF DM E11.65 - Type 2 diabetes mellitus with hyperglycemia, Z79.4 - retirement (current) use of insulin [Diabetic inserts] As directed 3 ea 2RF E11.65 - Type 2 diabetes mellitus with hyperglycemia, Z79.4 - retirement (current) use of insulin Discontinued isosorbide mononitrate ER Discontinued Reason: Doctor's Order 30 mg PO DAILY 90 tabs 3RF R07.9 - Chest pain, unspecified Coding Level of Care Code Est Pt Level 4 (36508) Diagnoses Vitamin B12 deficiency E53.8 Type 2 diabetes mellitus with hyperglycemia, with long-term current use of insulin E11.65; Z79.4 Diabetes mellitus long-term insulin use: with termite control representative use Benign prostatic hyperplasia with urinary frequency N40.1; R35.0 Lower urinary tract symptom presence: symptoms present Lower urinary tract symptom detail: urinary frequency Essential hypertension I10 Hypertension type: essential hypertension Coronary artery disease involving [place] coronary artery of [place] heart without angina pectoris I25.10 Coronary Disease-Associated Artery/Lesion type: [place] artery [place] vs. transplanted heart: [place] heart Associated angina: without angina Hypercholesterolemia E78.00 CKD (chronic kidney disease) N18.9 Ascending aorta dilatation I77.810
== END 2022-12-15 10:10 | disposition home or self-care (01) ==
PROVIDERS: PCP Internal Medicine; Visit Provider Internal Medicine
DX: I12.9 Hypertensive chronic kidney disease with stage 1 through stage 4 chronic kidney disease, or unspecified chronic kidney disease (principal); E11.65 Type 2 diabetes mellitus with hyperglycemia; Z79.4 Long term (current) use of insulin; N18.9 Chronic kidney disease, unspecified; I77.810 Thoracic aortic ectasia; E53.8 Deficiency of other specified B group vitamins; N40.1 Benign prostatic hyperplasia with lower urinary tract symptoms; R35.0 Frequency of micturition; I25.10 Atherosclerotic heart disease of native coronary artery without angina pectoris; E78.00 Pure hypercholesterolemia, unspecified
CPT/HCPCS: 83036; 96372; 99214; J3420

== ENCOUNTER 2023-01-12 09:35 | Outpatient (AMB) | payer MEDICARE, SELFPAY ==
[2023-01-12 09:40] VITALS: BP 144/80; PULSE 75; O2SAT 98; BMI 28.3
--- NOTE | 2023-01-12 09:40 | MHC.PC.OV ---
Vital Signs 01/12/23 09:40 Height 5 ft 8 in Weight 84.368 kg BMI 28.3 BP 144/80 H Blood Pressure Location Lt brachial Position Sitting Pulse 75 Pulse Source Pulse Oximeter Pulse Oximetry (%) 98 Oxygen Delivery Method Room Air Intake Visit Reasons: left leg scrapped up Allergies sitagliptin [Januvia] Allergy (Intermediate, Verified 01/12/23 09:41) Stomach Upset lisinopril Adverse Reaction (Intermediate, Verified 01/12/23 09:41) hyperkalemia Medication List - Last Reconciled 01/12/23 by Monica Price MD albuterol sulfate 90 mcg/actuation (ProAir HFA) 2 puffs inhalation Q6H PRN amlodipine 10 mg PO DAILY 90 days aspirin (Adult Aspirin Regimen) 81 mg PO DAILY atenolol 25 mg PO DAILY 90 days atorvastatin 20 mg PO DAILY blood sugar diagnostic As directed check the blood sugar TID blood-glucose meter As directed blood-glucose meter (Casual Steps Ultra2 Meter kit) As directed check the blood sugar TID clopidogrel 75 mg PO DAILY 90 days kb.stocking,knee,reg,xlrg As directed 20-30 mm HG cyanocobalamin (vitamin B-12) 1,000 mcg IM Q4W [Diabetic inserts As directed] [Diabetic shoes As directed] flash glucose scanning reader (NewdeaStyle Sasha 2 [place]) As directed flash glucose sensor (FreeStyle Sasha 2 Sensor kit) As directed check the BS TID insulin glargine (Lantus Solostar U-100 Insulin) 25 units subcut DAILY isosorbide mononitrate ER 30 mg PO DAILY lactulose 20 grams (30 mL) PO BID lancets (Casual Steps Delica Lancets) As directed check the blood sugar TID pen needle, diabetic (BD Ultra-Fine Mini Pen Needle) As directed three times per day tamsulosin 0.4 mg PO DAILY tamsulosin (Flomax) 0.4 mg PO BEDTIME valacyclovir 1,000 mg PO Q8H 7 days vancomycin in 0.9 % sodium chl 750 mg/250 mL 1 g IV Q12H Tobacco use date assessed: 09/01/22 Fall risk assessment: No Falls in past year Last assessed Fall Risk: 01/12/23 Dental Screening Dental Screen Date: 01/12/23 Did you have a dental visit in the last 12 months?: Yes Did you have a dental problem in the last 6 months where you did not have access to dental care?: No Was dental information given to patient?: Patient has dentist HPI left leg scrapped up HPI Details 77-year-old overweight male with controlled diabetes mellitus BPH hypertension coronary artery disease hypercholesterolemia chronic kidney disease coming in for follow-up. Patient was last seen in December 2022. fell wednesday(4 days ago and then had an abrasion L leg and bruises on the knee also. As for the diabetes patient has been having hypoglycemic episodes in the morning so discussed about insulin. On my list patient is on 15 units but the family has increased to 30 units every day. Discussed on decreasing the insulin does to 25 units every day. [facility] Medical History BPH (benign prostatic hyperplasia) Hypercholesterolemia Hypertension Hypoglycemia associated with diabetes Peripheral vascular disease PUD (peptic ulcer disease) Type 2 diabetes mellitus with hyperglycemia Surgical History Amputated toe of left foot Previous back surgery Social History Housing: House Alcohol intake: never Patient Tobacco Use Status: Former Tobacco user Tobacco use type: Cigarette e-Cigarette/Vaping Use: Never Used Second Hand Smoke Exposure: No service: No Current occupational status: retired Cognitive needs: No Hearing needs: No Vision needs: No Questionnaire PHQ-9 Over the last 2 weeks, how often have you been bothered by any of the following problems? 1. Little interest or pleasure in doing things: not at all 2. Feeling down, depressed, or hopeless: not at all 3. Trouble falling or staying asleep, or sleeping too much: not at all 4. Feeling tired or having little energy: not at all 5. Poor appetite or overeating: not at all 6. Feeling bad about yourself - or that you are a failure or have let yourself or your family down: not at all 7. Trouble concentrating on things, such as reading the newspaper or watching television: not at all 8. Moving or speaking so slowly that other people could have noticed. Or the opposite - being so fidgety or restless that you have been moving around a lot more than usual: not at all 9. Thoughts that you would be better off or of hurting yourself in some way: not at all Total score: 0 Depression Screening Interpretation: Negative Depression Screening Done: Yes Source: Developed by Drs. Wilner Washburn, Shashank Lewis and colleagues, with an educational liane from [employer]. Thrive Questionnaire Date Thrive assessed: 09/01/22 AUDIT C Alcohol Use Questionnaire (AUDIT-C) 1. How often do you have a drink containing alcohol?: Never 3. How often do you have six or more drinks on one occasion?: Never Total Score: 0 CHRISTI-7 AMB Questionnaire CHRISTI-7 Date CHRISTI - 7 assessed: 09/01/22 Source: Developed by Drs. Wilner Washburn, Lady Harrington, Shashank Tee and colleagues, with an educational liane from [employer]. Physical exam (Primary Care) Vital Signs: Last Vital Signs Pulse 75 01/12/23 09:40 BP 144/80 H 01/12/23 09:40 Pulse Ox 98 01/12/23 09:40 Oxygen Delivery Method Room Air 01/12/23 09:40 BMI result Body Mass Index 28.3 Tobacco/Smoking Status: Tobacco use Status Tobacco use date assessed 09/01/22 01/12/23 09:41 Patient Tobacco Use Status Former Tobacco user 01/12/23 09:41 Tobacco use type Cigarette 01/12/23 09:41 e-Cigarette/Vaping Use Never Used 01/12/23 09:41 PHQ-9: PHQ-9 Score PHQ-9: Total score 0 01/12/23 10:30 Depression Screening Interpretation: Negative Thrive Assessment: Date of Thrive Assessment Date Thrive assessed 09/01/22 01/12/23 09:41 Const General: alert; No acute distress Eyes Conjunctivae: conjunctivae normal Resp Auscultation: clear to auscultation bilaterally Cardio Rate: regular rate Rhythm: regular rhythm GI Inspection: Yes normal to inspection Extrem General: Yes normal to inspection and No edema Upper/lower leg/hip images: 1. 5 x 3 abrasion mildly red surrounding area with a scab 1 cm on top 2. Left knee with multiple 1 cm lacerations mildly red no swelling Office Meds cyanocobalamin (vitamin B-12) 1,000 mcg/mL injection solution Performing Provider: Monica Price MD Performing Location: [facility] Administered by: Connie Ramirez RN on 01/12/23 09:45 Dose Route Admin Location Dispensed Lot Number Expiration Date [facility] Marine Service Manager 1,000 mcg IM 1 mL [id number] 06/02/24 43515-204-74 [employer] Immunizations tetanus-diphtheria toxoids-Td 2 Lf unit-2 Lf unit/0.5 mL IM suspension Performing Provider: Monica Price MD Performing Location: [facility] Administered by: Demetria Gillis CMA on 01/12/23 10:37 Dose Route Admin Location Dispensed Lot Number Expiration Date [facility] Marine Service Manager 0.5 mL IM Left Deltoid 0.5 mL [id number] 08/09/23 [address]-8 [employer] VIS Given Date VIS Provided VIS Publication Date 01/12/23 Single Vaccine 20 Eligibility Eligibility Date Funding Source Not [place] Eligible 01/12/23 [facility] Assessment and Plan Assessment & Plan (1) Type 2 diabetes mellitus with hyperglycemia: Comment: Dr. Hicks Code(s): E11.65 - Type 2 diabetes mellitus with hyperglycemia Qualifiers: Diabetes mellitus intermodal customer service insulin use: with residential use Qualified Code(s): E11.65 - Type 2 diabetes mellitus with hyperglycemia; Z79.4 - termite technician (current) use of insulin Plan: Decrease the amount of carbohydrate intake, pasta, bread, rice and potatoes are all sugar and that is aside from all the sweet stuff, remember that fruits are good but they are Sweet also.with the hypoglycemia advised to change dose of insulin decrease 25 u (2) Fall: Code(s): W19.XXXA - Unspecified fall, initial encounter (3) Leg abrasion: Code(s): S80.819A - Abrasion, unspecified lower leg, initial encounter Plan: Antibiotic prescription sent, advised to monitor the abrasion on the left leg and wants scabbed and dry me. Covering. Tetanus shot to be given today Orders: Orders AMB Vitamin B12 Injection Patient Supplied Today E53.8 - Deficiency of other specified B group vitamins Td State Immunization Today Z23 - Encounter for immunization Medications: New amoxicillin-pot clavulanate 500-125 mg (Augmentin) 1 tab PO BID 14 tabs 0RF S80.819A - Abrasion, unspecified lower leg, initial encounter Changed From insulin glargine (Lantus Solostar U-100 Insulin) 15 units (0.15 mL) subcut DAILY 90 days 13.5 mL 3RF E11.65 - Type 2 diabetes mellitus with hyperglycemia, Z79.4 - termite technician (current) use of insulin To insulin glargine (Lantus Solostar U-100 Insulin) 25 units subcut DAILY E11.65 - Type 2 diabetes mellitus with hyperglycemia, Z79.4 - prison (current) use of insulin Coding Level of Care Code Est Pt Level 4 (33923) Diagnoses Type 2 diabetes mellitus with hyperglycemia, with long-term current use of insulin E11.65; Z79.4 Diabetes mellitus residential insulin use: with intermodal customer service use Fall W19.XXXA Leg abrasion S80.811V
== END 2023-01-12 11:57 | disposition home or self-care (01) ==
PROVIDERS: PCP Internal Medicine; Visit Provider Internal Medicine
DX: E11.65 Type 2 diabetes mellitus with hyperglycemia (principal); Z79.4 Long term (current) use of insulin; W19.XXXA Unspecified fall, initial encounter; S80.819A Abrasion, unspecified lower leg, initial encounter; Z23 Encounter for immunization; E53.8 Deficiency of other specified B group vitamins
CPT/HCPCS: 90471; 90714; 96372; 99214; J3420

== ENCOUNTER 2023-02-02 10:19 | Outpatient (AMB) | payer MEDICARE, SELFPAY ==
--- NOTE | 2023-02-02 10:24 | MHC.OFFVIS ---
Intake Vital Signs 02/02/23 10:25 Height 5 ft 8 in Weight 189 lb 9.561 oz BMI 28.8 BP 126/72 Blood Pressure Location Lt brachial Position Sitting Pulse 64 Intake Visit Reasons: 3 mth f/up Intake Note: 3 month follow-up feeling good Deportation Examiner Required: No Allergies sitagliptin [Januvia] Allergy (Intermediate, Verified 01/12/23 09:41) Stomach Upset lisinopril Adverse Reaction (Intermediate, Verified 01/12/23 09:41) hyperkalemia Medication List - Last Reconciled 02/02/23 by Gerardo Faulkner MD albuterol sulfate 90 mcg/actuation (ProAir HFA) 2 puffs inhalation Q6H PRN amlodipine 10 mg PO DAILY 90 days aspirin (Adult Aspirin Regimen) 81 mg PO DAILY atenolol 25 mg PO DAILY 90 days atorvastatin 20 mg PO DAILY blood sugar diagnostic As directed check the blood sugar TID blood-glucose meter As directed blood-glucose meter ([employer] Ultra2 Meter kit) As directed check the blood sugar TID clopidogrel 75 mg PO DAILY 90 days kb.stocking,knee,reg,xlrg As directed 20-30 mm HG cyanocobalamin (vitamin B-12) 1,000 mcg IM Q4W [Diabetic inserts As directed] [Diabetic shoes As directed] flash glucose scanning reader (The Key RevolutionStyle Sasha 2 [place]) As directed flash glucose sensor (FreeStyle Sasha 2 Sensor kit) As directed check the BS TID insulin glargine (Lantus Solostar U-100 Insulin) 25 units subcut DAILY isosorbide mononitrate ER 30 mg PO DAILY lactulose 20 grams (30 mL) PO BID lancets ([employer] Delica Lancets) As directed check the blood sugar TID pen needle, diabetic (BD Ultra-Fine Mini Pen Needle) As directed three times per day tamsulosin 0.4 mg PO DAILY tamsulosin (Flomax) 0.4 mg PO BEDTIME valacyclovir 1,000 mg PO Q8H 7 days vancomycin in 0.9 % sodium chl 750 mg/250 mL 1 g IV Q12H HPI HPI Comments History of Present Illness Details Eleuterio comes for follow-up. He says since starting isosorbide he is feeling very well. He has low energy and has no symptoms of angina. Continues to be limited by claudication. Currently not seeing any vascular surgeon. Takes all his medications. Denies any heart failure symptoms. Denies any lightheadedness, syncope. No prolonged irregular heartbeat or palpitations. [facility] Medical History Hypoglycemia associated with diabetes PUD (peptic ulcer disease) Hypercholesterolemia Hypertension Peripheral vascular disease BPH (benign prostatic hyperplasia) Type 2 diabetes mellitus with hyperglycemia Surgical History Amputated toe of left foot Previous back surgery Social History Housing: House Alcohol intake: never Patient Tobacco Use Status: Former Tobacco user Tobacco use type: Cigarette e-Cigarette/Vaping Use: Never Used Second Hand Smoke Exposure: No service: No Current occupational status: retired Cognitive needs: No Hearing needs: No Vision needs: No Review of Systems Const Denies chills, Denies fatigue, Denies fever(s), Denies frequent falls, Denies weakness, Denies weight gain and Denies weight loss ENT Denies dizziness Card Denies chest pain, Denies leg edema, Denies lightheadedness, Denies palpitations, Denies dyspnea, Denies dyspnea on exertion, Denies orthopnea and Denies other (loss of consciousness) Resp Denies cough, Denies dyspnea and Denies dyspnea on exertion GI Denies hematochezia and Denies change in stool character Musc Denies abnormal gait, Denies muscle weakness, Denies numbness, Denies radiating pain into limb and Denies tingling Neuro Denies Abnormal speech present, Denies abnormal gait, Denies dizziness, Denies frequent falls, Denies numbness, Denies tingling and Denies weakness Endo Denies fatigue and Denies palpitations Physical Exam Vital Signs: Last Vital Signs Pulse 64 02/02/23 10:25 BP 126/72 02/02/23 10:25 BMI result Body Mass Index 28.8 Const General: cooperative, comfortable, no acute distress, alert, awake, Physically active and well groomed Nutritional Appearance: overweight Orientation/consciousness: patient oriented x3 Limitations: no limitations HEENT Head: Yes normocephalic and Yes atraumatic Neck Neck: Yes trachea midline, Yes supple and Yes no JVD Resp Effort & Inspection: normal respiratory effort Auscultation: clear to auscultation bilaterally Cardio Jugular venous distension: no JVD Palpation: normal PMI Rate: regular rate Rhythm: regular rhythm Heart sounds: S1 normal heart sound present, S2 normal heart sound present, no click, no gallops, no murmurs and no rubs GI Auscultation: normal bowel sounds Skin General skin exam: no rashes or lesions noted Neuro General: patient oriented x3 and no focal motor deficits Speech: No Abnormal speech present Extrem General: Yes no clubbing, cyanosis or edema Psych Appearance: grossly normal Assessment & Plan Assessment & Plan (1) CAD (coronary artery disease): Comment: Stent placement 1989, 2004, cardiac cath 2022 multivessel disease Code(s): I25.10 - Atherosclerotic heart disease of [place] coronary artery without angina pectoris Qualifiers: Coronary Disease-Associated Artery/Lesion type: [place] artery [place] vs. transplanted heart: [place] heart Associated angina: without angina Qualified Code(s): I25.10 - Atherosclerotic heart disease of [place] coronary artery without angina pectoris Plan: Diffuse multivessel coronary artery disease causing symptoms angina. Although symptoms angina not resolved on antianginal therapy with addition of isosorbide. He said he feels a lot better and has much improved functional capacity. Continue current medical therapy. Importance of medical therapy was discussed. Advise to call me if he has worsening symptoms that may require further up titration medication and/or surgical consultation. He is currently interested only medical therapy. Currently on dual antiplatelet therapy given his diffuse vascular disease. Should be on high-intensity statin therapy with target goal LDL closer to 60 mg/dL. Continue aggressive diabetes management goal hemoglobin A1c less than 7%. Blood pressure is currently well optimized. (2) Ascending aorta dilatation: Comment: September 2022Normal left ventricular size and systolic function. There is moderately increased left ventricular wall thickness. The visually estimated ejection fraction is between 55-60%. - E/E prime ratio is between 8 and 15 consistent with indeterminate filling pressures. - Normal right ventricular cavity size and systolic function. - The left atrium is moderately dilated. The right atrium is normal in size. - There is mild dilatation of the ascending aorta measuring 3.70 Code(s): I77.810 - Thoracic aortic ectasia Plan: Mild ascending aortic enlargement most likely atherosclerotic in nature. Continue monitor annually by echocardiogram. Will repeat echocardiogram 7 months time and follow-up after that. Continue aggressive vascular risk factor modifications above. Will follow up in the clinic in 7 months time, sooner p.r.n.. Thank you for allowing me to partake in his care Coding Level of Care Code Est Pt Level 4 (09776) Diagnoses Coronary artery disease involving [place] coronary artery of [place] heart without angina pectoris I25.10 Coronary Disease-Associated Artery/Lesion type: [place] artery [place] vs. transplanted heart: [place] heart Associated angina: without angina Ascending aorta dilatation I77.810
[2023-02-02 10:25] VITALS: BP 126/72; PULSE 64; BMI 28.8
== END 2023-02-02 10:48 | disposition home or self-care (01) ==
PROVIDERS: PCP Internal Medicine; Visit Provider Internal Medicine Cardiovascular Disease
DX: I25.10 Atherosclerotic heart disease of native coronary artery without angina pectoris (principal); I77.810 Thoracic aortic ectasia
CPT/HCPCS: 99214

== ENCOUNTER → 2023-02-02 10:19 | Outpatient (BNVA) | payer MEDICARE, SELFPAY | PROVIDERS: PCP Internal Medicine; Visit Provider Internal Medicine Cardiovascular Disease | DX: I25.10 Atherosclerotic heart disease of native coronary artery without angina pectoris (principal); I77.810 Thoracic aortic ectasia | CPT/HCPCS: 99212 ==

== ENCOUNTER 2023-02-12 08:54 | Outpatient (AMB) | payer MEDICARE, SELFPAY ==
--- NOTE | 2023-02-12 08:57 | AM.OFFVISNUR ---
Intake Intake Visit Reasons: B12 Allergies sitagliptin [Januvia] Allergy (Intermediate, Verified 01/12/23 09:41) Stomach Upset lisinopril Adverse Reaction (Intermediate, Verified 01/12/23 09:41) hyperkalemia Office Meds cyanocobalamin (vitamin B-12) 1,000 mcg/mL injection solution Performing Provider: Monica Price MD Performing Location: [facility] Administered by: Lexi Doherty RN on 02/12/23 09:04 Dose Route Admin Location Dispensed Lot Number Expiration Date [facility] Patching Machine Operator 1,000 mcg IM left deltoid 1 mL [id number] 10/02/24 57712-949-09 [employer] Coding Assessment & Plan Assessment & Plan Orders: Orders AMB Vitamin B12 Injection Patient Supplied Today D51.9 - Vitamin B12 deficiency anemia, unspecified
== END 2023-02-12 09:03 | disposition home or self-care (01) ==
PROVIDERS: PCP Internal Medicine; Visit Provider Internal Medicine
DX: D51.9 Vitamin B12 deficiency anemia, unspecified (principal)
CPT/HCPCS: 96372; J3420

== ENCOUNTER 2023-03-15 08:33 | Outpatient (AMB) | payer MEDICARE, SELFPAY ==
--- NOTE | 2023-03-15 08:40 | AM.OFFVISNUR ---
Intake Intake Visit Reasons: b-12 Allergies sitagliptin [Januvia] Allergy (Intermediate, Verified 01/12/23 09:41) Stomach Upset lisinopril Adverse Reaction (Intermediate, Verified 01/12/23 09:41) hyperkalemia Office Meds cyanocobalamin (vitamin B-12) 1,000 mcg/mL injection solution Performing Provider: Monica Price MD Performing Location: [facility] Administered by: Lexi Doherty RN on 03/15/23 08:49 Dose Route Admin Location Dispensed Lot Number Expiration Date [facility] Pin Inserter Regulator 1,000 mcg IM left deltoid 1 mL [id number] 10/02/24 57925-588-64 [employer] Coding Assessment & Plan Assessment & Plan Orders: Orders AMB Vitamin B12 Injection Patient Supplied Today D51.9 - Vitamin B12 deficiency anemia, unspecified
== END 2023-03-15 08:51 | disposition home or self-care (01) ==
PROVIDERS: PCP Internal Medicine; Visit Provider Internal Medicine
DX: D51.9 Vitamin B12 deficiency anemia, unspecified (principal)
CPT/HCPCS: 96372; J3420

== ENCOUNTER 2023-04-09 08:30 | Outpatient (AMB) | payer MEDICARE, SELFPAY ==
--- NOTE | 2023-04-09 08:40 | MHC.PC.OV ---
Vital Signs 04/09/23 08:41 Height 5 ft 8 in Weight 184 lb 0.8 oz BMI 28.0 BP 122/58 L Blood Pressure Location Lt brachial Position Sitting Pulse 57 Pulse Source Pulse Oximeter Pulse Oximetry (%) 96 Oxygen Delivery Method Room Air Intake Visit Reasons: DM , CAD, HTN , Cholesterol Allergies sitagliptin [Januvia] Allergy (Intermediate, Verified 04/09/23 08:47) Stomach Upset lisinopril Adverse Reaction (Intermediate, Verified 04/09/23 08:47) hyperkalemia Tobacco use date assessed: 04/09/23 Fall risk assessment: No Falls in past year Last assessed Fall Risk: 04/09/23 HPI DM , CAD, HTN , Cholesterol HPI Details 77-year-old overweight male with controlled diabetes mellitus BPH hypertension hypercholesterolemia CAD chronic kidney disease coming in for follow-up. Last seen in January 2023 review of the notes has seen Cardiology that January also no symptoms of angina on antianginal therapy no relief from symptoms of angina medical therapy declined further workup currently on dual antiplatelet therapy LDL goal of 60 ascending aorta dilatation September 2022 last ultrasound/echo showing EF 55-60% 3.7. Patient also follows up with Nephrology diagnosis of chronic kidney disease stage IIIB hyperkalemia not on Demarco or Arb type 4 RTA also metabolic bone disease advised to add SGLT2 inhibitor possibly Kerendia for the potassium PFSH Medical History Hypoglycemia associated with diabetes PUD (peptic ulcer disease) Hypercholesterolemia Hypertension Peripheral vascular disease BPH (benign prostatic hyperplasia) Type 2 diabetes mellitus with hyperglycemia Surgical History Amputated toe of left foot Previous back surgery Social History Housing: House Alcohol intake: never Patient Tobacco Use Status: Former Tobacco user Tobacco use type: Cigarette e-Cigarette/Vaping Use: Never Used Second Hand Smoke Exposure: No service: No Current occupational status: retired Cognitive needs: No Hearing needs: No Vision needs: No Questionnaire Thrive Questionnaire Date Thrive assessed: 09/01/22 AUDIT C Alcohol Use Questionnaire (AUDIT-C) 1. How often do you have a drink containing alcohol?: Never 3. How often do you have six or more drinks on one occasion?: Never Total Score: 0 CHRISTI-7 AMB Questionnaire CHRISTI-7 Date CHRISTI - 7 assessed: 09/01/22 Source: Developed by Drs. Wilner Washburn, Lady Harrington, Shashank Tee and colleagues, with an educational liane from [employer]. Physical exam (Primary Care) Vital Signs: Last Vital Signs Pulse 57 04/09/23 08:41 BP 122/58 L 04/09/23 08:41 Pulse Ox 96 04/09/23 08:41 Oxygen Delivery Method Room Air 04/09/23 08:41 BMI result Body Mass Index 28.0 Tobacco/Smoking Status: Tobacco use Status Tobacco use date assessed 04/09/23 04/09/23 08:42 Patient Tobacco Use Status Former Tobacco user 04/09/23 08:42 Tobacco use type Cigarette 04/09/23 08:42 e-Cigarette/Vaping Use Never Used 04/09/23 08:42 Thrive Assessment: Date of Thrive Assessment Date Thrive assessed 09/01/22 04/09/23 08:42 Const General: alert; No acute distress Eyes Conjunctivae: conjunctivae normal Resp Auscultation: clear to auscultation bilaterally Cardio Rate: regular rate Rhythm: regular rhythm GI Inspection: Yes normal to inspection Extrem General: Yes normal to inspection and No edema Results AMB Hemoglobin A1c AMB Hemoglobin A1c 8.4 % Last Edit by DAMIEN Saenz on 04/09/23 09:01 Results Reviewed Results Reviewed: Laboratory Last Values Hgb A1c (Clinic) 8.4 % (4.0-6.0) H 04/09/23 08:43 Assessment and Plan Assessment & Plan (1) Ascending aorta dilatation: Comment: September 2022Normal left ventricular size and systolic function. There is moderately increased left ventricular wall thickness. The visually estimated ejection fraction is between 55-60%. - E/E prime ratio is between 8 and 15 consistent with indeterminate filling pressures. - Normal right ventricular cavity size and systolic function. - The left atrium is moderately dilated. The right atrium is normal in size. - There is mild dilatation of the ascending aorta measuring 3.70 Code(s): I77.810 - Thoracic aortic ectasia Plan: Continue to monitor. Last echo September 2022 3.7 cm advised repeat echocardiogram in 7 months (2) Type 2 diabetes mellitus with hyperglycemia: Comment: Dr. Hicks Code(s): E11.65 - Type 2 diabetes mellitus with hyperglycemia Qualifiers: Diabetes mellitus alf insulin use: with intermodal truck driver use Qualified Code(s): E11.65 - Type 2 diabetes mellitus with hyperglycemia; Z79.4 - penitentiary (current) use of insulin Plan: Decrease the amount of carbohydrate intake, pasta, bread, rice and potatoes are all sugar and that is aside from all the sweet stuff, remember that fruits are good but they are Sweet also. Hemoglobin A1c goal of less than 7.0 patient on Lantus 25 units (3) Hypertension: Code(s): I10 - Essential (primary) hypertension Qualifiers: Hypertension type: essential hypertension Qualified Code(s): I10 - Essential (primary) hypertension Plan: Continue with blood pressure medication. Decrease salt intake and exercise on amlodipine 10 mg once a day atenolol 25 mg once a day (4) Hypercholesterolemia: Code(s): E78.00 - Pure hypercholesterolemia, unspecified Plan: Avoid fried foods, chicken skin, eggs, butter margarine, pastries and meat. Be it pork or beef they have a lot of cholesterol LDL goal of less than 60 patient presently on atorvastatin 20 mg once a day (5) CAD (coronary artery disease): Comment: Stent placement 2004, cardiac cath 2022 multivessel disease Code(s): I25.10 - Atherosclerotic heart disease of [place] coronary artery without angina pectoris Qualifiers: Coronary Disease-Associated Artery/Lesion type: [place] artery [place] vs. transplanted heart: [place] heart Associated angina: without angina Qualified Code(s): I25.10 - Atherosclerotic heart disease of [place] coronary artery without angina pectoris Plan: Control the cholesterol, weight, blood pressure, diabetes continue with aspirin 81 mg once a day (6) CKD (chronic kidney disease): Comment: Stage IIIB Code(s): N18.9 - Chronic kidney disease, unspecified Plan: Patient follows up with Nephrology has advised to monitor potassium and if possible Demarco inhibitor if hyperkalemia , Kerendia (7) Peripheral neuropathy: Code(s): G62.9 - Polyneuropathy, unspecified Plan: not bothering presently (8) Open toe wound: Code(s): S91.109A - Unspecified open wound of unspecified toe(s) without damage to nail, initial encounter Plan: pulse on the feet felt- advised antibiotic ointment Orders: Orders AMB Hemoglobin A1c Today E11.65 - Type 2 diabetes mellitus with hyperglycemia Referrals Podiatry Referral E11.65 - Type 2 diabetes mellitus with hyperglycemia, Z79.4 - penitentiary (current) use of insulin Medications: Changed From insulin glargine (Lantus Solostar U-100 Insulin) 25 units (0.25 mL) subcut DAILY 15 mL 5RF E11.65 - Type 2 diabetes mellitus with hyperglycemia, Z79.4 - continuous churn buttermaker (current) use of insulin To insulin glargine (Lantus Solostar U-100 Insulin) or as directed 40 units (0.4 mL) subcut DAILY 12 ea 3RF E11.65 - Type 2 diabetes mellitus with hyperglycemia, Z79.4 - continuous churn buttermaker (current) use of insulin Discontinued tamsulosin Discontinued Reason: Patient Refused 0.4 mg PO BEDTIME 90 caps 1RF N40.1 - Benign prostatic hyperplasia with lower urinary tract symptoms, R35.0 - Frequency of micturition Coding Level of Care Code Est Pt Level 4 (72808) Diagnoses Ascending aorta dilatation I77.810 Type 2 diabetes mellitus with hyperglycemia, with long-term current use of insulin E11.65; Z79.4 Diabetes mellitus alf insulin use: with alf use Essential hypertension I10 Hypertension type: essential hypertension Hypercholesterolemia E78.00 Coronary artery disease involving [place] coronary artery of [place] heart without angina pectoris I25.10 Coronary Disease-Associated Artery/Lesion type: [place] artery [place] vs. transplanted heart: [place] heart Associated angina: without angina CKD (chronic kidney disease) N18.9 Peripheral neuropathy G62.9 Open toe wound S91.109A
[2023-04-09 08:41] VITALS: BP 122/58; PULSE 57; O2SAT 96; BMI 28.0
== END 2023-04-09 09:35 | disposition home or self-care (01) ==
PROVIDERS: PCP Internal Medicine; Visit Provider Internal Medicine
DX: I77.810 Thoracic aortic ectasia (principal); E11.65 Type 2 diabetes mellitus with hyperglycemia; Z79.4 Long term (current) use of insulin; I12.9 Hypertensive chronic kidney disease with stage 1 through stage 4 chronic kidney disease, or unspecified chronic kidney disease; E78.00 Pure hypercholesterolemia, unspecified; I25.10 Atherosclerotic heart disease of native coronary artery without angina pectoris; N18.9 Chronic kidney disease, unspecified; G62.9 Polyneuropathy, unspecified; S91.109A Unspecified open wound of unspecified toe(s) without damage to nail, initial encounter
CPT/HCPCS: 83036; 99214

== ENCOUNTER 2023-04-10 07:48 | Outpatient (REF) | payer MEDICARE, SELFPAY | END 2023-04-10 07:49 | disposition home or self-care (01) | LOC: HO.LAB 07:48 | PROVIDERS: PCP Internal Medicine; Visit Provider Internal Medicine | DX: E11.65 Type 2 diabetes mellitus with hyperglycemia (principal); E78.00 Pure hypercholesterolemia, unspecified; Z79.4 Long term (current) use of insulin | CPT/HCPCS: 36415; 80053; 80061; 82607; 82746; 84439; 84443; 85025 ==

== ENCOUNTER 2023-04-16 08:41 | Outpatient (AMB) | payer MEDICARE, SELFPAY ==
--- NOTE | 2023-04-16 08:43 | AM.OFFVISNUR ---
Intake Intake Visit Reasons: B12 Allergies sitagliptin [Januvia] Allergy (Intermediate, Verified 04/09/23 08:47) Stomach Upset lisinopril Adverse Reaction (Intermediate, Verified 04/09/23 08:47) hyperkalemia Office Meds cyanocobalamin (vitamin B-12) 1,000 mcg/mL injection solution Performing Provider: Monica Price MD Performing Location: [facility] Administered by: Lexi Doherty RN on 04/16/23 08:51 Dose Route Admin Location Dispensed Lot Number Expiration Date [facility] Lmsw 1,000 mcg IM left deltoid 1 mL [id number] 10/02/24 83970-488-20 [employer] Coding Assessment & Plan Assessment & Plan Orders: Orders AMB Vitamin B12 Injection Patient Supplied Today D51.9 - Vitamin B12 deficiency anemia, unspecified
== END 2023-04-16 08:54 | disposition home or self-care (01) ==
PROVIDERS: PCP Internal Medicine; Visit Provider Internal Medicine
DX: D51.9 Vitamin B12 deficiency anemia, unspecified (principal)
CPT/HCPCS: 96372; J3420

== ENCOUNTER 2023-05-17 08:22 | Outpatient (AMB) | payer MEDICARE, SELFPAY ==
--- NOTE | 2023-05-17 08:24 | AM.OFFVISNUR ---
Intake Intake Visit Reasons: B-12 Allergies sitagliptin [Januvia] Allergy (Intermediate, Verified 05/17/23 08:43) Stomach Upset lisinopril Adverse Reaction (Intermediate, Verified 05/17/23 08:43) hyperkalemia Medication List - Last Reconciled 05/17/23 by Neville Maravilla PA-C albuterol sulfate 90 mcg/actuation (ProAir HFA) 2 puffs inhalation Q6H PRN amlodipine 10 mg PO DAILY 90 days aspirin (Adult Aspirin Regimen) 81 mg PO DAILY atenolol 25 mg PO DAILY 90 days atorvastatin 20 mg PO DAILY blood sugar diagnostic As directed check the blood sugar TID blood-glucose meter As directed blood-glucose meter ([employer] Ultra2 Meter kit) As directed check the blood sugar TID clopidogrel 75 mg PO DAILY 90 days kb.stocking,knee,reg,xlrg As directed 20-30 mm HG cyanocobalamin (vitamin B-12) 1,000 mcg IM Q4W [Diabetic inserts As directed] [Diabetic shoes As directed] flash glucose scanning reader (CryoLifeStyle Sasha 2 Acra) As directed flash glucose sensor (FreeStyle Sasha 2 Sensor kit) As directed check the BS TID insulin glargine (Lantus Solostar U-100 Insulin) 40 units (0.4 mL) subcut DAILY isosorbide mononitrate ER 30 mg PO DAILY lactulose 20 grams (30 mL) PO BID lancets (Tagkast Delica Lancets) As directed check the blood sugar TID pen needle, diabetic (BD Ultra-Fine Mini Pen Needle) As directed three times per day valacyclovir 1,000 mg PO Q8H 7 days vancomycin in 0.9 % sodium chl 750 mg/250 mL 1 g IV Q12H Nursing Note Patient here for B12 injection Office Meds cyanocobalamin (vitamin B-12) 1,000 mcg/mL injection solution Performing Provider: Monica Price MD [facility] Administered by: Neville Maravilla PA-C on 05/17/23 08:25 Dose Route Admin Location Dispensed Lot Number Expiration Date [employer] Orthotic/Prosthetic Practitioner 1,000 mcg IM 1 mL [id number] 09/03/24 68366-696-18 [employer] cyanocobalamin (vitamin B-12) 1,000 mcg/mL injection solution Performing Provider: Neville Maravilla PA-C [facility] Administered by: Neville Maravilla PA-C on 05/17/23 08:45 Dose Route Admin Location Dispensed Lot Number Expiration Date N[employer] Orthotic/Prosthetic Practitioner 1,000 mcg IM 1 mL [id number] 09/03/24 24588-095-87 [employer] Coding Level of Care Code Procedure Only Diagnoses Vitamin B12 deficiency E53.8 Assessment & Plan Assessment & Plan (1) Vitamin B12 deficiency: Code(s): E53.8 - Deficiency of other specified B group vitamins Category: Medical Plan: Given IM injection of B12 in left deltoid Orders: Orders AMB Vitamin B12 Injection Patient Supplied Today E53.8 - Deficiency of other specified B group vitamins Monica Price MD AMB Vitamin B12 Injection Patient Supplied Today E53.8 - Deficiency of other specified B group vitamins Neville Maravilla PA-C
== END 2023-05-17 08:45 | disposition home or self-care (01) ==
PROVIDERS: PCP Internal Medicine; Visit Provider Internal Medicine
DX: E53.8 Deficiency of other specified B group vitamins (principal)
CPT/HCPCS: 96372; J3420

== ENCOUNTER 2023-06-15 08:28 | Outpatient (AMB) | payer MEDICARE, SELFPAY ==
--- NOTE | 2023-06-15 08:29 | AM.OFFVISNUR ---
Intake Intake Visit Reasons: B12 Shot Allergies sitagliptin [Januvia] Allergy (Intermediate, Verified 05/17/23 08:43) Stomach Upset lisinopril Adverse Reaction (Intermediate, Verified 05/17/23 08:43) hyperkalemia Office Meds cyanocobalamin (vitamin B-12) 1,000 mcg/mL injection solution Performing Provider: Monica Price MD Performing Location: [facility] Administered by: Connie Ramirez RN on 06/15/23 08:29 Dose Route Admin Location Dispensed Lot Number Expiration Date N[employer] Civil Manager 1,000 mcg IM left deltoid 1 mL [id number] 10/02/24 59789-000-42 [employer] Coding Assessment & Plan Assessment & Plan Orders: Orders AMB Vitamin B12 Injection Patient Supplied Today E53.8 - Deficiency of other specified B group vitamins
== END 2023-06-15 08:38 | disposition home or self-care (01) ==
PROVIDERS: PCP Internal Medicine; Visit Provider Internal Medicine
DX: E53.8 Deficiency of other specified B group vitamins (principal)
CPT/HCPCS: 96372; J3420

== ENCOUNTER 2023-07-16 08:37 | Outpatient (AMB) | payer MEDICARE, SELFPAY ==
--- NOTE | 2023-07-16 08:47 | AM.OFFVISNUR ---
Intake Intake Visit Reasons: B12 Shot Allergies sitagliptin [Januvia] Allergy (Intermediate, Verified 05/17/23 08:43) Stomach Upset lisinopril Adverse Reaction (Intermediate, Verified 05/17/23 08:43) hyperkalemia Office Meds cyanocobalamin (vitamin B-12) 1,000 mcg/mL injection solution Performing Provider: Monica Price MD Performing Location: [facility] Administered by: Connie Ramirez RN on 07/16/23 08:47 Dose Route Admin Location Dispensed Lot Number Expiration Date N[employer] Newspaper Correspondent 1,000 mcg IM left deltoid 1 mL [id number] 10/02/24 48700-661-10 [employer] Coding Assessment & Plan Assessment & Plan Orders: Orders AMB Vitamin B12 Injection Patient Supplied Today E53.8 - Deficiency of other specified B group vitamins Medications: New cyanocobalamin (vitamin B-12) 1,000 mcg IM ONCE 1 mL 0RF E53.8 - Deficiency of other specified B group vitamins
== END 2023-07-16 08:49 | disposition home or self-care (01) ==
PROVIDERS: PCP Internal Medicine; Visit Provider Internal Medicine
DX: E53.8 Deficiency of other specified B group vitamins (principal)
CPT/HCPCS: 96372; J3420

== ENCOUNTER 2023-08-20 08:33 | Outpatient (AMB) | payer MEDICARE, SELFPAY ==
--- NOTE | 2023-08-20 08:52 | AM.OFFVISNUR ---
Intake Intake Visit Reasons: Office visit nursing note Allergies sitagliptin [Januvia] Allergy (Intermediate, Verified 05/17/23 08:43) Stomach Upset lisinopril Adverse Reaction (Intermediate, Verified 05/17/23 08:43) hyperkalemia Office Meds cyanocobalamin (vitamin B-12) 1,000 mcg/mL injection solution Performing Provider: Monica Price MD Performing Location: [facility] Administered by: Connie Ramirez RN on 08/20/23 08:53 Dose Route Admin Location Dispensed Lot Number Expiration Date [employer] Men'S Leather Dress Belt Maker 1,000 mcg IM 1 mL [id number] 09/30/24 09670-003-79 [employer] Coding Assessment & Plan Assessment & Plan Orders: Orders AMB Vitamin B12 Injection Patient Supplied Today E53.8 - Deficiency of other specified B group vitamins Medications: New cyanocobalamin (vitamin B-12) 1,000 mcg IM ONCE 1 mL 0RF E53.8 - Deficiency of other specified B group vitamins
== END 2023-08-20 08:52 | disposition home or self-care (01) ==
PROVIDERS: PCP Internal Medicine; Visit Provider Internal Medicine
DX: E53.8 Deficiency of other specified B group vitamins (principal)
CPT/HCPCS: 96372; J3420

== ENCOUNTER 2023-08-24 08:04 | Outpatient (REF) | payer MEDICARE, SELFPAY ==
[2023-08-24 10:02] LABS: Creatinine Urine 39.07 mg/dL; Microalbum/Creatinine Ratio Ur 2050.1 ug/mg cr (<30)
== END 2023-08-24 08:05 | disposition home or self-care (01) ==
LOC: HO.LAB 08:04
PROVIDERS: PCP Internal Medicine; Visit Provider Internal Medicine
DX: E11.65 Type 2 diabetes mellitus with hyperglycemia (principal); Z79.4 Long term (current) use of insulin
CPT/HCPCS: 82043; 82570

== ENCOUNTER 2023-08-27 09:35 | Outpatient (AMB) | payer MEDICARE, SELFPAY ==
--- NOTE | 2023-08-27 09:38 | MHC.PC.OV ---
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: No Allergies sitagliptin [Januvia] Allergy (Intermediate, Verified 08/27/23 09:48) Stomach Upset lisinopril Adverse Reaction (Intermediate, Verified 08/27/23 09:48) hyperkalemia Tobacco use date assessed: 08/27/23 Fall risk assessment: No Falls in past year Last assessed Fall Risk: 08/27/23 Dental Screening Dental Screen Date: 08/27/23 Did you have a dental visit in the last 12 months?: No Did you have a dental problem in the last 6 months where you did not have access to dental care?: No HPI DM , CAD HPI Details 78-year-old overweight male(10 lb weight gain?) With uncontrolled diabetes mellitus hypertension hypercholesterolemia coronary artery disease with chronic kidney disease peripheral neuropathy aortic dilatation coming in for follow-up. Last seen in 04/24/2023 noted a wound on the toe patient is here for follow-up. discussed about the weight. noted R big toe has scaling of the Big toe and advised podiatry referral [facility] Medical History Hypoglycemia associated with diabetes PUD (peptic ulcer disease) Hypercholesterolemia Hypertension Peripheral vascular disease BPH (benign prostatic hyperplasia) Type 2 diabetes mellitus with hyperglycemia Surgical History Amputated toe of left foot Previous back surgery Social History Housing: House Alcohol intake: never Patient Tobacco Use Status: Former Tobacco user Tobacco use type: Cigarette e-Cigarette/Vaping Use: Never Used Second Hand Smoke Exposure: No service: No Current occupational status: retired Cognitive needs: No Hearing needs: No Vision needs: No Questionnaire PHQ-9 Over the last 2 weeks, how often have you been bothered by any of the following problems? 1. Little interest or pleasure in doing things: not at all 2. Feeling down, depressed, or hopeless: not at all Source: Developed by Drs. Wilner Washburn, Shashank Lewis and colleagues, with an educational liane from [employer]. Thrive Questionnaire Date Thrive assessed: 09/01/22 AUDIT C Alcohol Use Questionnaire (AUDIT-C) 1. How often do you have a drink containing alcohol?: Never 3. How often do you have six or more drinks on one occasion?: Never Total Score: 0 CHRISTI-7 AMB Questionnaire CHRISTI-7 Date CHRISTI - 7 assessed: 08/27/23 Feeling nervous, anxious, or on edge: 0 = Not at all Not being able to stop or control worryin = Not at all Worrying too much about different things: 0 = Not at all Trouble relaxin = Not at all Being so restless that it is hard to sit still: 0 = Not at all Becoming easily annoyed or irritable: 0 = Not at all Feeling afraid as if something awful might happen: 0 = Not at all Total CHRISTI-7 score (0-4 normal; 5-9 mild; 10-14 moderate; 15-21 severe): 0 Source: Developed by Drs. Wilner Washburn, Shashank Lewis and colleagues, with an educational liane from [employer]. CHRISTI-7 Assessment Billing CHRISTI-7 Assessment Tool: CHRISTI-7 Assessment 40317 Physical exam (Primary Care) Vital Signs: Last Vital Signs Pulse 57 08/27/23 09:40 BP 126/60 08/27/23 09:40 Pulse Ox 96 08/27/23 09:40 Oxygen Delivery Method Room Air 08/27/23 09:40 BMI result Body Mass Index 29.5 Tobacco/Smoking Status: Tobacco use Status Tobacco use date assessed 08/27/23 08/27/23 09:41 Patient Tobacco Use Status Former Tobacco user 08/27/23 09:40 Tobacco use type Cigarette 08/27/23 09:40 e-Cigarette/Vaping Use Never Used 08/27/23 09:40 Thrive Assessment: Date of Thrive Assessment Date Thrive assessed 09/01/22 08/27/23 09:40 Const General: alert; No acute distress Eyes Conjunctivae: conjunctivae normal Resp Auscultation: clear to auscultation bilaterally Cardio Rate: regular rate Rhythm: regular rhythm GI Inspection: Yes normal to inspection Extrem General: Yes normal to inspection and No edema Results AMB Hemoglobin A1c AMB Hemoglobin A1c 7.4 % Last Edit by DAMIEN Saenz on 08/27/23 09:53 Results Reviewed Results Reviewed: Laboratory Last Values Hgb A1c (Clinic) 7.4 % (4.0-6.0) H 08/27/23 09:51 Assessment and Plan Assessment & Plan (1) Type 2 diabetes mellitus with hyperglycemia: Comment: Dr. Hicks Code(s): E11.65 - Type 2 diabetes mellitus with hyperglycemia Qualifiers: Diabetes mellitus tank terminal gauger insulin use: with usp use Qualified Code(s): E11.65 - Type 2 diabetes mellitus with hyperglycemia; Z79.4 - long term care phlebotomist (current) use of insulin Plan: Decrease the amount of carbohydrate intake, pasta, bread, rice and potatoes are all sugar and that is aside from all the sweet stuff, remember that fruits are good but they are Sweet also. Hemoglobin A1c goal of less than 7.0 patient on insulin Lantus 40 units once a day (2) Hypertension: Code(s): I10 - Essential (primary) hypertension Qualifiers: Hypertension type: essential hypertension Qualified Code(s): I10 - Essential (primary) hypertension Plan: Continue with blood pressure medication. Decrease salt intake and exercise takes atenolol 25 mg once a day amlodipine 10 mg once a day (3) Hypercholesterolemia: Code(s): E78.00 - Pure hypercholesterolemia, unspecified Plan: Avoid fried foods, chicken skin, eggs, butter margarine, pastries and meat. Be it pork or beef they have a lot of cholesterol LDL goal of less than 70 preferably lower April blood work LDL is 60 patient on atorvastatin 20 mg once a day (4) CAD (coronary artery disease): Comment: Stent placement 1989, 2004, cardiac cath 2022 multivessel disease Code(s): I25.10 - Atherosclerotic heart disease of [place] coronary artery without angina pectoris Qualifiers: Associated angina: without angina Coronary Disease-Associated Artery/Lesion type: [place] artery [place] vs. transplanted heart: [place] heart Qualified Code(s): I25.10 - Atherosclerotic heart disease of [place] coronary artery without angina pectoris Plan: Control the cholesterol, weight, blood pressure, diabetes continue with aspirin 81 mg once a day (5) BPH (benign prostatic hyperplasia): Code(s): N40.0 - Benign prostatic hyperplasia without lower urinary tract symptoms Qualifiers: Lower urinary tract symptom detail: urinary frequency Lower urinary tract symptom presence: symptoms present Qualified Code(s): N40.1 - Benign prostatic hyperplasia with lower urinary tract symptoms; R35.0 - Frequency of micturition (6) CKD (chronic kidney disease): Comment: Stage IIIB Code(s): N18.9 - Chronic kidney disease, unspecified Plan: Keep well hydrated avoid NSAIDs control blood pressure and diabetes (7) Open toe wound: Comment: R big toe Code(s): S91.109A - Unspecified open wound of unspecified toe(s) without damage to nail, initial encounter Orders: Orders AMB Hemoglobin A1c Today E11.65 - Type 2 diabetes mellitus with hyperglycemia, Z79.4 - USP (current) use of insulin Comprehensive Met. Panel Today E11.65 - Type 2 diabetes mellitus with hyperglycemia, Z79.4 - long term care phlebotomist (current) use of insulin B Type Natriuretic Peptide Today E11.65 - Type 2 diabetes mellitus with hyperglycemia, Z79.4 - USP (current) use of insulin Ferritin Today E11.65 - Type 2 diabetes mellitus with hyperglycemia, Z79.4 - USP (current) use of insulin Comprehensive Met. Panel 3 Months E11.65 - Type 2 diabetes mellitus with hyperglycemia, Z79.4 - USP (current) use of insulin Vitamin B12 and Folate 3 Months E11.65 - Type 2 diabetes mellitus with hyperglycemia, Z79.4 - USP (current) use of insulin Free T4 (Free Thyroxine) 3 Months E11.65 - Type 2 diabetes mellitus with hyperglycemia, Z79.4 - long term care phlebotomist (current) use of insulin Lipid Panel 3 Months E11.65 - Type 2 diabetes mellitus with hyperglycemia, E78.00 - Pure hypercholesterolemia, unspecified, Z79.4 - USP (current) use of insulin Complete Blood Count Auto Diff Today E11.65 - Type 2 diabetes mellitus with hyperglycemia, Z79.4 - long term care phlebotomist (current) use of insulin Reticulocyte Count Today E11.65 - Type 2 diabetes mellitus with hyperglycemia, Z79.4 - USP (current) use of insulin IRON PROFILE Today E11.65 - Type 2 diabetes mellitus with hyperglycemia, Z79.4 - long term care phlebotomist (current) use of insulin Complete Blood Count Auto Diff 3 Months E11.65 - Type 2 diabetes mellitus with hyperglycemia, Z79.4 - long term care phlebotomist (current) use of insulin Thyroid Stimulating Hormone 3 Months E11.65 - Type 2 diabetes mellitus with hyperglycemia, Z79.4 - USP (current) use of insulin Referrals Podiatry Referral S91.109A - Unspecified open wound of unspecified toe(s) without damage to nail, initial encounter Coding Level of Care Code Est Pt Level 4 (71386) Diagnoses Type 2 diabetes mellitus with hyperglycemia, with long-term current use of insulin E11.65; Z79.4 Diabetes mellitus tank terminal gauger insulin use: with tank terminal gauger use Essential hypertension I10 Hypertension type: essential hypertension Hypercholesterolemia E78.00 Coronary artery disease involving [place] coronary artery of [place] heart without angina pectoris I25.10 Associated angina: without angina Coronary Disease-Associated Artery/Lesion type: [place] artery [place] vs. transplanted heart: [place] heart Benign prostatic hyperplasia with urinary frequency N40.1; R35.0 Lower urinary tract symptom detail: urinary frequency Lower urinary tract symptom presence: symptoms present CKD (chronic kidney disease) N18.9 Open toe wound S91.109A Additional Codes CHRISTI-7 Assessment Billing - CHRISTI-7 Assessment Tool: CHRISTI-7 Assessment 98908 ([id number])
[2023-08-27 09:40] VITALS: BP 126/60; PULSE 57; O2SAT 96; BMI 29.5
== END 2023-08-27 10:09 | disposition home or self-care (01) ==
PROVIDERS: PCP Internal Medicine; Visit Provider Internal Medicine
DX: E11.65 Type 2 diabetes mellitus with hyperglycemia (principal); Z79.4 Long term (current) use of insulin; I12.9 Hypertensive chronic kidney disease with stage 1 through stage 4 chronic kidney disease, or unspecified chronic kidney disease; E78.00 Pure hypercholesterolemia, unspecified; I25.10 Atherosclerotic heart disease of native coronary artery without angina pectoris; N40.1 Benign prostatic hyperplasia with lower urinary tract symptoms; R35.0 Frequency of micturition; N18.9 Chronic kidney disease, unspecified; S91.109A Unspecified open wound of unspecified toe(s) without damage to nail, initial encounter
CPT/HCPCS: 83036; 99214

== ENCOUNTER 2023-09-02 08:45 | Outpatient (REF) | payer MEDICARE, SELFPAY ==
[2023-09-02 09:00] LABS: MANUAL DIFF FLAG NO
[2023-09-02 09:29] LABS: Basophils Absolute Auto 0.1 X10*3/uL (0.0-0.2); Basophils Percent Auto 0.6 % (0-2); Eosinophils Absolute Auto 0.6 X10*3/uL (0.0-0.4); Hematocrit 42.8 % (42.0-52.0); Imm Gran Abs Auto 0.05 X10*3/uL (0.00-0.03); Imm Gran Pct Auto 0.6 % (0.0-0.4); Immature Retic Fraction 16.6 % (2.3-13.4); Lymphocytes Absolute Auto 1.4 X10*3/uL (1.2-4.9); Lymphocytes Percent Auto 16.8 % (20-40); Mean Corpuscular HGB Conc 32.7 g/dl (31.0-36.0); Mean Corpuscular Volume 91.6 fL (80.0-98.0); Mean Platelet Volume 10.2 fL (9.4-12.4); Monocytes Absolute Auto 0.8 X10*3/uL (0.1-1.2); Neutrophils Absolute Auto 5.2 x10*3/uL (2.0-8.3); Platelet Count 173 X10*3/uL (160-400); Red Blood Count 4.67 X10*6/uL (4.60-5.80); Red Cell Distribution Width 13.5 % (11.0-16.0); Retic HGB Equivalent 33.8 pg (30.0-35.0); Reticulocyte Percent 2.6 % (0.5-1.8); Reticulocytes Absolute 0.123 X10*6/uL (0.026-0.095)
[2023-09-02 09:56] LABS: B Type Natriuretic Peptide 498 pg/mL (<100)
[2023-09-02 10:00] LABS: Alanine Aminotransferase 25 U/L (0-40); Albumin Level 4.2 g/dL (3.5-5.0); Alkaline Phosphatase 103 U/L (39-117); Anion Gap 14 (12-20); Aspartate Amino Transferase 21 U/L (5-37); Bilirubin Total 0.5 mg/dL (0.0-1.0); Blood Urea Nitrogen 58 mg/dL (9-16); Carbon Dioxide 23 mmol/L (22-29); Chloride 110 mmol/L (96-108); Estimated Glomerular Filt Rate 33; Glucose Random 93 mg/dL (60-115); Iron 72 mcg/dL (45-160); Percent Iron Saturation 23 % (15-50); Potassium 5.9 mmol/L (3.3-5.1); Sodium 141 mmol/L (135-145); Total Iron Binding Capacity 307 mcg/dL (228-428); Total Protein 7.3 g/dL (6.5-8.0); Unsaturated Iron Binding 235 ug/dL
[2023-09-02 10:18] LABS: Ferritin 59 ng/mL (20-250)
== END 2023-09-02 08:46 | disposition home or self-care (01) ==
LOC: HO.LAB 08:45
PROVIDERS: PCP Internal Medicine; Visit Provider Internal Medicine
DX: E11.65 Type 2 diabetes mellitus with hyperglycemia (principal); Z79.4 Long term (current) use of insulin
CPT/HCPCS: 36415; 80053; 82728; 83540; 83880; 85025; 85045

== ENCOUNTER → 2023-09-03 08:57 | Outpatient (REF) | payer MEDICARE, SELFPAY ==
--- NOTE | 2023-09-03 09:07 | CA_ITS ---
Transthoracic Echocardiogram Patient (Last, First, Middle): Eleuterio Uribe J Gender: Male Date of : 1945 Age: 78 Procedure Date: 09/03/2023 Procedure Type: Transthoracic Echocardiogram Location: OP Height: 170.18 cm Weight: 88. kg BSA: 2.00 m2 Heart Rate: bpm BP: 126 / 60 mmHg Storeperson: TO Referring MD: Gerardo Faulkner MD Symptoms: I77.810 - Thoracic aortic ectasia Study Quality: Fair/Contrast ECG Rhythm: Sinus Conclusions: - The left ventricular systolic function is normal. The calculated ejection fraction is 63% by biplane method. - There is moderately increased left ventricular wall thickness. - The left atrium is moderately dilated. - No obvious valvular pathology seen on this study. Findings Procedure Information Contrast agent, definity, is being given per protocol without apparent complications. Left Ventricle Normal left ventricular cavity size. There is moderately increased left ventricular wall thickness. The left ventricular systolic function is normal. The calculated ejection fraction is 63% by biplane method. There is no evidence of regional wall motion abnormalities. Evidence suggests grade I (mild) diastolic dysfunction. Right Ventricle Normal right ventricular cavity size and systolic function. Atria The left atrium is moderately dilated. The right atrium is normal in size. Aortic Valve There is a normal trileaflet aortic valve. There is mild calcification of the aortic valve. There is no aortic valve stenosis. There is no aortic valve regurgitation. Mitral Valve The mitral valve appears normal. There is mild mitral valve regurgitation. There is no mitral valve stenosis. Pulmonic Valve The pulmonic valve is likely normal. Tricuspid Valve Normal tricuspid valve structure. There is trace tricuspid valve regurgitation. There is no evidence of pulmonary hypertension. Great Vessels The asc aorta is normal in size. Small plaque is seen in the sino tubular ridge. Venous The inferior vena cava is normal in size and collapses greater than 50% with inspiration. Pericardium/Pleural There is no evidence of pericardial effusion. Prior Study Comparison No significant change compared to prior study dated: 09/11/2022. Recommendations, Care & Conclusions No obvious valvular pathology seen on this study. Measurements 2D Linear Measurements IVSd: 1.33 0.6-0.9/0.6-1.0 cm LVIDd: 5.38 3.9-5.3/4.2-5.9 cm LVIDd Index: 2.69 2.4-3.2/2.2-3.1 cm/m2 LVIDs: 3.91 2.0-3.6 cm LVPWd: 1.19 0.7-1.1 cm LA Diam: 4.50 2.7-3.8/3.0-4.0 cm LAIDs Index: 2.25 1.5-2.3 cm/m2 LV Mass: 350.81 67-162/88-224 g LV Mass Index: 175.41 43-95/49-115 g/m2 LVOT Diam: 2.30 3.0+(-)1.3 cm 2D Systolic Function EF 4C: 67.30 >55% EF 2C: 59.80 >55% EF BiP: 62.50 >55% Mitral Valve MV VTI: 0.45 MV Pk Jose: 1.16 MV Mn Jose: 0.61 MV Pk Grad: 5.00 MV Mn Grad: 2.00 MV Pk E: 0.68 MV PK A: 0.95 MV Decel Time: 401.00 E/A: 0.70 E'Lateral: 4.90 E'Medial: 3.37 E/E' Med: 20.10 E/E' Lat: 13.80 PHT: 117.00 MVA PHT: 1.88 MVA Continuity: 2.44 Decel [place]: 1.69 Aortic Valve AoV Pk Jose: 1.36 AoV Mn Jose: 1.03 AoV VTI: 0.41 AoV Pk Grad: 7.00 Aov Mn Grad: 5.00 ALINE Cont.VTI: 2.70 LVOT LVOT Pk Jose: 0.92 LVOT Mn Jose: 0.62 LVOT VTI: 0.27 LVOT Pk Grad: 3.00 LVOT Mn Grad: 2.00 LVOT Diam: 2.30 LVOT Area: 4.15 Diastolic Function MV Pk E: 0.68 MV Pk A: 0.95 E/A: 0.70 E'Medial: 3.37 E/E' Med: 20.10 E' Laterial: 4.90 E/E' Lat: 13.80 Right Ventricle TAPSE (mm): 26.00 TVS' Jose: 10.60 Tricuspid Valve TR Pk Jose: 2.00 TR Pk Grad: 16.00 RA Press: 3.00 RVSP: 19.00 Great Vessels Aorta Sinus of Valsalva: 3.69 2.0-3.5 cm Ao Asc: 3.80 2.1-3.4 cm Updated in Other Vendor System with Status of Final Jan Whittington MD electronically signed on 09/04/2023 1:35:29 PM with status of Final
== END ==
LOC: HO.CARD 08:57
PROVIDERS: PCP Internal Medicine; Visit Provider Internal Medicine Cardiovascular Disease
DX: I77.810 Thoracic aortic ectasia (principal)
CPT/HCPCS: 93306; Q9957

== ENCOUNTER → 2023-09-03 09:07 | Outpatient (BNV) | payer MEDICARE, SELFPAY | PROVIDERS: PCP Internal Medicine; Visit Provider Internal Medicine | DX: I34.0 Nonrheumatic mitral (valve) insufficiency (principal); I35.8 Other nonrheumatic aortic valve disorders | CPT/HCPCS: 93306 ==

== ENCOUNTER 2023-09-07 06:32 | Outpatient (REF) | payer MEDICARE, SELFPAY ==
[2023-09-07 06:45] LABS: MANUAL DIFF FLAG NO
[2023-09-07 08:07] LABS: Basophils Absolute Auto 0.1 X10*3/uL (0.0-0.2); Basophils Percent Auto 0.8 % (0-2); Eosinophils Absolute Auto 0.3 X10*3/uL (0.0-0.4); Eosinophils Percent Auto 3.7 % (0-4); Hematocrit 40.4 % (42.0-52.0); Hemoglobin 13.4 g/dl (14.0-18.0); Imm Gran Abs Auto 0.04 X10*3/uL (0.00-0.03); Imm Gran Pct Auto 0.5 % (0.0-0.4); Lymphocytes Absolute Auto 1.4 X10*3/uL (1.2-4.9); Lymphocytes Percent Auto 15.7 % (20-40); Mean Corpuscular HGB Conc 33.2 g/dl (31.0-36.0); Mean Corpuscular Volume 90.6 fL (80.0-98.0); Mean Platelet Volume 10.1 fL (9.4-12.4); Monocytes Absolute Auto 0.8 X10*3/uL (0.1-1.2); Monocytes Percent Auto 9.2 % (2-11); Neutrophils Absolute Auto 6.1 x10*3/uL (2.0-8.3); Neutrophils Percent Auto 70.1 % (45-73); Platelet Count 158 X10*3/uL (160-400); Red Blood Count 4.46 X10*6/uL (4.60-5.80); Red Cell Distribution Width 13.5 % (11.0-16.0); White Blood Count 8.7 X10*3/uL (4.8-10.8)
[2023-09-07 09:03] LABS: Alanine Aminotransferase 21 U/L (0-40); Alkaline Phosphatase 89 U/L (39-117); Anion Gap 16 (12-20); Aspartate Amino Transferase 18 U/L (5-37); Bilirubin Total 0.4 mg/dL (0.0-1.0); Blood Urea Nitrogen 67 mg/dL (9-16); Calcium 8.8 mg/dL (8.4-10.2); Carbon Dioxide 19 mmol/L (22-29); Chloride 111 mmol/L (96-108); Cholesterol 114 mg/dL (<200); Estimated Glomerular Filt Rate 31; Free T4 (Free Thyroxine) 0.93 ng/dL (0.71-1.85); Glucose Random 77 mg/dL (60-115); HDL Cholesterol 41 mg/dL (>40); LDL Cholesterol Calculated 57 mg/dL (<100); Potassium 4.7 mmol/L (3.3-5.1); Sodium 141 mmol/L (135-145); Total Protein 6.8 g/dL (6.5-8.0); Triglycerides 81 mg/dL (<150)
[2023-09-07 09:14] LABS: Folate 8.4 ng/mL (> or = 4.0); Vitamin B12 919 pg/mL (200-900)
== END 2023-09-07 06:33 | disposition home or self-care (01) ==
LOC: HO.LAB 06:32
PROVIDERS: PCP Internal Medicine; Visit Provider Internal Medicine
DX: E11.65 Type 2 diabetes mellitus with hyperglycemia (principal); Z79.4 Long term (current) use of insulin; E78.00 Pure hypercholesterolemia, unspecified
CPT/HCPCS: 36415; 80053; 80061; 82607; 82746; 84439; 84443; 85025

== ENCOUNTER 2023-09-13 10:23 | Outpatient (AMB) | payer MEDICARE, SELFPAY ==
--- NOTE | 2023-09-13 10:28 | MHC.OFFVIS ---
Vital Signs 09/13/23 10:30 Height 5 ft 8 in Weight 194 lb 0.108 oz BMI 29.5 BP 116/64 Blood Pressure Location Lt brachial Position Sitting Pulse 57 Intake Visit Reasons: 7 mth fu after echo Intake Note: 7 month follow-up after echo and ekg c/o burning in chest with activity Dietary Services Manager Required: No Cook Box Filler: Cook Box Filler Present Accompanied by: Spouse Allergies sitagliptin [Januvia] Allergy (Intermediate, Verified 08/27/23 09:48) Stomach Upset lisinopril Adverse Reaction (Intermediate, Verified 08/27/23 09:48) hyperkalemia Medication List - Last Reconciled 09/13/23 by Gerardo Faulkner MD amlodipine 10 mg PO DAILY 90 days aspirin (Adult Aspirin Regimen) 81 mg PO DAILY atenolol 25 mg PO DAILY 90 days atorvastatin 20 mg PO DAILY blood sugar diagnostic As directed check the blood sugar TID blood-glucose meter As directed blood-glucose meter (99 Fahrenheit Ultra2 Meter kit) As directed check the blood sugar TID clopidogrel 75 mg PO DAILY 90 days kb.stocking,knee,reg,xlrg As directed 20-30 mm HG cyanocobalamin (vitamin B-12) 1,000 mcg IM Q4W [Diabetic inserts As directed] [Diabetic shoes As directed] flash glucose scanning reader (FreeStyle Sasha 2 [place]) As directed flash glucose sensor (FreeStyle Sasha 2 Sensor kit) As directed check the BS TID insulin glargine (Lantus Solostar U-100 Insulin) 40 units (0.4 mL) subcut DAILY isosorbide mononitrate ER 30 mg PO DAILY lactulose 20 grams (30 mL) PO BID lancets (99 Fahrenheit Delica Lancets) As directed check the blood sugar TID pen needle, diabetic (BD Ultra-Fine Mini Pen Needle) As directed three times per day valacyclovir 1,000 mg PO Q8H 7 days HPI Comments Details: Eleuterio comes for follow-up, accompanied by his . Patient continues to have symptoms of angina with exertional activity like mowing his lawn. He gets burning in his chest. Then he stops and the symptoms go away in 10 minutes. He has been taking all his medications. No symptoms at rest as much as I could understand. His renal function has been stable. He has been taking all his medications. Denies any heart failure symptoms. Denies any lightheadedness, syncope. No prolonged palpitation irregular heartbeat. [facility] Medical History Hypoglycemia associated with diabetes PUD (peptic ulcer disease) Hypercholesterolemia Hypertension Peripheral vascular disease BPH (benign prostatic hyperplasia) Type 2 diabetes mellitus with hyperglycemia Surgical History Amputated toe of left foot Previous back surgery Social History Housing: House Alcohol intake: never Patient Tobacco Use Status: Former Tobacco user Tobacco use type: Cigarette e-Cigarette/Vaping Use: Never Used Second Hand Smoke Exposure: No service: No Current occupational status: retired Cognitive needs: No Hearing needs: No Vision needs: No Review of Systems Const Denies chills, Denies fatigue, Denies fever(s), Denies frequent falls, Denies weakness, Denies weight gain and Denies weight loss ENT Denies dizziness Card Denies chest pain, Denies leg edema, Denies lightheadedness, Denies palpitations, Denies dyspnea, Denies dyspnea on exertion, Denies orthopnea and Denies other (loss of consciousness) Resp Denies cough, Denies dyspnea and Denies dyspnea on exertion GI Denies hematochezia and Denies change in stool character Musc Denies abnormal gait, Denies muscle weakness, Denies numbness, Denies radiating pain into limb and Denies tingling Neuro Denies Abnormal speech present, Denies abnormal gait, Denies dizziness, Denies frequent falls, Denies numbness, Denies tingling and Denies weakness Endo Denies fatigue and Denies palpitations Physical Exam Vital Signs: Last Vital Signs Pulse 57 09/13/23 10:30 BP 116/64 09/13/23 10:30 BMI result Body Mass Index 29.5 Const General: cooperative, comfortable, no acute distress, alert, awake, Physically active and well groomed Nutritional Appearance: overweight Orientation/consciousness: patient oriented x3 Limitations: no limitations HEENT Head: Yes normocephalic and Yes atraumatic Neck Neck: Yes trachea midline, Yes supple and Yes no JVD Resp Effort & Inspection: normal respiratory effort Auscultation: clear to auscultation bilaterally Cardio Jugular venous distension: no JVD Palpation: normal PMI Rate: regular rate Rhythm: regular rhythm Heart sounds: S1 normal heart sound present, S2 normal heart sound present, no click, no gallops, no murmurs and no rubs GI Auscultation: normal bowel sounds Skin General skin exam: no rashes or lesions noted Neuro General: patient oriented x3 and no focal motor deficits Speech: No Abnormal speech present Extrem General: Yes no clubbing, cyanosis or edema Psych Appearance: grossly normal Office Procedures EKG Details: EKG shows sinus bradycardia with LVH with deep T-wave inversions in inferior as well as inferolateral leads suggestive of ischemia. These are worse compared to prior EKG [id number], Complete Assessment & Plan Assessment & Plan (1) CAD (coronary artery disease): Comment: Stent placement 1989, 2004, cardiac cath 2022 multivessel disease Code(s): I25.10 - Atherosclerotic heart disease of [place] coronary artery without angina pectoris Category: Medical Qualifiers: Coronary Disease-Associated Artery/Lesion type: [place] artery [place] vs. transplanted heart: [place] heart Associated angina: without angina Qualified Code(s): I25.10 - Atherosclerotic heart disease of [place] coronary artery without angina pectoris Plan: Coronary artery disease with diffuse three-vessel coronary artery disease not amenable to PCI. Patient continues to have symptoms of exertional chest discomfort suggestive of angina on current medical therapy. Reviewed the cardiac catheterization with in given the diffuse nature of CAD not a candidate for PCI therapy. Also the vessel size is small and not sure if he would be a candidate for surgical revascularization but will obtain a Cardiothoracic Surgical opinion. Patient currently has chronic kidney disease at risk of progressive renal disease surgical revascularization is likely. This was discussed with him. However he continues to have symptoms of angina and has significant EKG changes suggestive of ischemia. Continue aggressive risk factor modification. Goal LDL less than 70 mg/dL. Blood pressure is currently well optimized. Will uptitrate isosorbide to 60 mg daily. Will follow up in the clinic in 2 months time Medications: New isosorbide mononitrate ER 60 mg PO DAILY 30 tabs 3RF Coding Level of Care Code Est Pt Level 4 (40692) Diagnoses Coronary artery disease involving [place] coronary artery of [place] heart without angina pectoris I25.10 Coronary Disease-Associated Artery/Lesion type: [place] artery [place] vs. transplanted heart: [place] heart Associated angina: without angina CPT Codes EKG - CPT: 36847-[id number], Complete ([id number])
[2023-09-13 10:30] VITALS: BP 116/64; PULSE 57; BMI 29.5
== END 2023-09-13 11:02 | disposition home or self-care (01) ==
PROVIDERS: PCP Internal Medicine; Visit Provider Internal Medicine Cardiovascular Disease
DX: I25.10 Atherosclerotic heart disease of native coronary artery without angina pectoris (principal)
CPT/HCPCS: 93010; 99214

== ENCOUNTER → 2023-09-13 10:23 | Outpatient (BNVA) | payer MEDICARE, SELFPAY | PROVIDERS: PCP Internal Medicine; Visit Provider Internal Medicine Cardiovascular Disease | DX: I25.10 Atherosclerotic heart disease of native coronary artery without angina pectoris (principal) | CPT/HCPCS: 93005; 99212 ==

== ENCOUNTER 2023-09-24 08:17 | Outpatient (AMB) | payer MEDICARE, SELFPAY ==
--- NOTE | 2023-09-24 08:28 | AM.OFFVISNUR ---
Intake Intake Visit Reasons: B12 Shot Allergies sitagliptin [Januvia] Allergy (Intermediate, Verified 08/27/23 09:48) Stomach Upset lisinopril Adverse Reaction (Intermediate, Verified 08/27/23 09:48) hyperkalemia Office Meds cyanocobalamin (vitamin B-12) 1,000 mcg/mL injection solution Performing Provider: Monica Price MD Performing Location: [facility] Administered by: Connie Ramirez RN on 09/24/23 08:29 Dose Route Admin Location Dispensed Lot Number Expiration Date NDC Paper Cup Handle Machine Operator 1,000 mcg IM left deltoid 1 mL [id number] 10/02/24 52277-601-25 [employer] Coding Assessment & Plan Assessment & Plan Orders: Orders AMB Vitamin B12 Injection Patient Supplied Today E53.8 - Deficiency of other specified B group vitamins Medications: New cyanocobalamin (vitamin B-12) 1,000 mcg IM ONCE 1 mL 0RF E53.8 - Deficiency of other specified B group vitamins
== END 2023-09-24 08:34 | disposition home or self-care (01) ==
LOC: HO.HMGH 08:17
PROVIDERS: PCP Internal Medicine; Visit Provider Internal Medicine
DX: E53.8 Deficiency of other specified B group vitamins (principal)
CPT/HCPCS: 96372; J3420

== ENCOUNTER 2023-10-26 13:09 | Outpatient (AMB) | payer MEDICARE, SELFPAY ==
[2023-10-26 13:15] VITALS: BP 154/80; PULSE 74; TEMP 36.7; O2SAT 94; BMI 29.5
--- NOTE | 2023-10-26 13:15 | AM.OFFWIN_ITS ---
Intake Vital Signs 3 10/26/23 13:15 Height 5 ft 8 in Weight 194 lb BMI 29.5 BP 154/80 H Blood Pressure Location Lt brachial Position Sitting Pulse 74 Pulse Source Pulse Oximeter Temp 98.0 F Temp Source Oral Pulse Oximetry (%) 94 Oxygen Delivery Method Room Air Intake Visit Reasons: EP finger lft hand swollen Intake Note: pt is here for left hand, finger has swelling Patient Tobacco Use Status: Former Tobacco user Allergies sitagliptin [Januvia] Allergy (Intermediate, Verified 10/26/23 13:16) Stomach Upset lisinopril Adverse Reaction (Intermediate, Verified 10/26/23 13:16) hyperkalemia Do you need a note to return to daycare/school/sports/work: No HPI HPI Comments 2 History of Present Illness0 Details Pt is an 78yo diabetic male who presents with his for R hand infection R hand dominant 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 which required hospitalization and iv antibiotics 2 years ago Denies recent trauma or injury States approx 5 days of R 4th digit pain and edema Unsure how it happened Intermittent sharp pain; no pain scale given Denies fever or chills No medicine for symptoms No numbness/tingling PFSH Medical History Hypoglycemia associated with diabetes PUD (peptic ulcer disease) Hypercholesterolemia Hypertension Peripheral vascular disease BPH (benign prostatic hyperplasia) Type 2 diabetes mellitus with hyperglycemia Surgical History Amputated toe of left foot Previous back surgery Social History Housing: House Alcohol intake: never Patient Tobacco Use Status: Former Tobacco user Tobacco use type: Cigarette e-Cigarette/Vaping Use: Never Used Second Hand Smoke Exposure: No service: No Current occupational status: retired Cognitive needs: No Hearing needs: No Vision needs: No Review of Systems Const Denies chills and Denies fever(s) Musc Reports as per HPI, Reports arthralgias, Reports joint swelling, Reports limited range of motion and Denies tingling Skin/Breast Reports erythema and Reports skin pain Neuro Denies tingling and Denies paresthesias Physical Exam Vital Signs: Last Vital Signs Temp 98.0 F 10/26/23 13:15 Pulse 74 10/26/23 13:15 BP 154/80 H 10/26/23 13:15 Pulse Ox 94 10/26/23 13:15 Oxygen Delivery Method Room Air 10/26/23 13:15 BMI result Body Mass Index 29.5 General: Non-toxic, NAD. Speaking full sentences. Skin: Warm dry throughout. R hand imaged above. 4th digit: + subungal hematoma with cuticle intact. + edema and erythema to distal phalanx. Tenderness to palpation of area currounding nail. No induration to fingerpad. No drainage. No proximal flexor or extensor tendon to palpation. + full flexion of digit. Minimal decreased extension 3rd digit: scabbed wound to ulnar aspect of distal phalanx with surrounding erythema. Non-tender to palpation. Full flexion/extsntion Eye: EOMI Respiratory: No respiratory distress Cardiac: Radial pulse intact MSK: See above Neurology: A/O. No aphasia or facial droop. Gait without abnormality Psych: Good mood and affect Assessment & Plan Assessment & Plan (1) Finger deformity: Code(s): M20.009 - Unspecified deformity of unspecified finger(s) Plan: xray ordered to evaluate (2) Distal phalanx or phalanges, closed fracture: Code(s): S62.639A - Displaced fracture of distal phalanx of unspecified finger, initial encounter for closed fracture Qualifiers: Encounter type: initial encounter Finger: ring finger Fracture alignment: nondisplaced Laterality: right Qualified Code(s): S62.664A - Nondisplaced fracture of distal phalanx of right ring finger, initial encounter for closed fracture Plan: Xray revealed distal phalanx fx R 4th digit Finger splint placed Ortho referral ordered and printed copy given to pt Will cover with antibiotic to ensure not secondary infection No open fx noted Pt and gave verbal understanding of instruction at time of d/c Orders: Referrals 2 Orthopedics Referral S62.664A - Nondisplaced fracture of distal phalanx of right ring finger, initial encounter for closed fracture Medications: New 2 cephalexin 500 mg PO BID 14 caps 0RF Coding Level of Care Code Est Pt Level 3 (16021) Diagnoses Finger deformity M20.009 Closed nondisplaced fracture of distal phalanx of right ring finger, initial encounter S62.664A Encounter type: initial encounter Finger: ring finger Fracture alignment: nondisplaced Laterality: right
== END 2023-10-26 13:57 | disposition home or self-care (01) ==
PROVIDERS: PCP Internal Medicine; Visit Provider Physician Assistant
DX: M20.009 Unspecified deformity of unspecified finger(s) (principal); S62.664A Nondisplaced fracture of distal phalanx of right ring finger, initial encounter for closed fracture
CPT/HCPCS: 99213

== ENCOUNTER 2023-10-26 13:31 | Outpatient (REF) | payer MEDICARE, SELFPAY ==
--- NOTE | ~2023-10-26 | XR_ITS ---
EXAMINATION: XR HAND, RIGHT CLINICAL INFORMATION: hx 3rd digit osteomyelitis. Worsening pain/edema 4th digit COMPARISON: None available. TECHNIQUE: PA, lateral, and oblique views of the right hand. FINDINGS: There is a transverse fracture of the distal phalange of the ring finger. Fracture involves the dorsal cortex and extends to the articular surface at the DIP joint with slight displacement of the fracture fragment. The DIP joint of the middle digit only seen well on lateral view appears normal. There is loss of bone of the distal tuft of the distal phalanx of the middle digit. In appropriate clinical setting this can be concerning for osteomyelitis. The overall bone density of the residual bone is normal. If there is clinical concern for osteomyelitis of the middle digit MRI would be helpful for follow-up. There are a few small linear calcifications in the soft tissues of the distal third finger near the DIP joint. These are likely chronic. 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 Small vessel calcifications of the volar side of the wrist. XR/XR hand RT min 3V IMPRESSION: 1. Transverse fracture of the distal phalange of the ring finger. 2. Loss of bone of the distal tuft of the distal phalanx of the middle digit. In appropriate clinical setting this can be concerning for osteomyelitis. MRI could be helpful for follow-up.
== END 2023-10-26 13:32 | disposition home or self-care (01) ==
LOC: HO.HMGCX 13:31
PROVIDERS: PCP Internal Medicine; Visit Provider Physician Assistant
DX: M20.001 Unspecified deformity of right finger(s) (principal)
CPT/HCPCS: 73130

== ENCOUNTER 2023-10-27 14:28 | Outpatient (AMB) | payer MEDICARE, SELFPAY ==
--- NOTE | 2023-10-27 14:50 | AM.OFFVISNUR ---
Intake Visit Reasons: B-12 Shot Allergies sitagliptin [Januvia] Allergy (Intermediate, Verified 10/26/23 13:16) Stomach Upset lisinopril Adverse Reaction (Intermediate, Verified 10/26/23 13:16) hyperkalemia Office Meds cyanocobalamin (vitamin B-12) 1,000 mcg/mL injection solution Performing Provider: Monica Price MD Performing Location: [facility] Administered by: Beverly Barney RN on 10/27/23 14:50 Dose Route Admin Location Dispensed Lot Number Expiration Date NDC Installation Engineer 1,000 mcg IM 1 mL [id number] 01/02/25 34947-751-13 [employer] Assessment & Plan Assessment & Plan Orders: Orders AMB Vitamin B12 Injection Patient Supplied Today E53.8 - Deficiency of other specified B group vitamins Medications: New cyanocobalamin (vitamin B-12) 1,000 mcg IM ONCE 1 mL 0RF E53.8 - Deficiency of other specified B group vitamins
== END 2023-10-27 14:52 | disposition home or self-care (01) ==
PROVIDERS: PCP Internal Medicine; Visit Provider Internal Medicine
DX: E53.8 Deficiency of other specified B group vitamins (principal)
CPT/HCPCS: 96372; J3420

== ENCOUNTER 2023-11-03 08:34 | Outpatient (REF) | payer MEDICARE, SELFPAY ==
--- NOTE | ~2023-11-03 | XR_ITS ---
EXAMINATION: XR HAND, RIGHT CLINICAL INFORMATION: Pain in right hand, attention middle and ring fingers. COMPARISON: 10/26/2023 TECHNIQUE: Four views of the right hand. FINDINGS: Redemonstration of comminuted, displaced fracture at the base of the fourth digit distal phalanx, extending to the DIP joint articular surface. There is associated soft tissue swelling. Redemonstration of linear radiodensities in the soft tissues of the third digit distal portion, possibly representing soft tissue calcifications versus metallic or other etiology. Periarticular demineralization at the third digit DIP joint. Mild degenerative changes at the third digit DIP joint. Chondrocalcinosis in the triangular fibrocartilage. Vascular calcifications at the wrist. Degenerative changes between the anterior arch of C1 and the odontoid. XR/XR hand RT min 3V IMPRESSION: 1. Redemonstration of comminuted, displaced fracture at the base of the fourth digit distal phalanx, extending to the DIP joint articular surface. 2. Redemonstration of linear radiodensities in the soft tissues of the third digit distal portion, possibly representing soft tissue calcifications versus metallic or other etiology. 3. Recommend follow up imaging in 10-14 days if fracture is suspected.
== END 2023-11-03 08:35 | disposition home or self-care (01) ==
LOC: HO.HOSX 08:34
DX: S62.634A Displaced fracture of distal phalanx of right ring finger, initial encounter for closed fracture (principal); E11.65 Type 2 diabetes mellitus with hyperglycemia; Z79.4 Long term (current) use of insulin
CPT/HCPCS: 73130; 99202

== ENCOUNTER 2023-11-03 13:52 | Outpatient (AMB) | payer MEDICARE, SELFPAY ==
--- NOTE | 2023-11-03 14:38 | MHC.OFFVIS ---
Vital Signs 11/03/23 14:40 Height 5 ft 8 in Weight 194 lb BMI 29.5 Intake Visit Reasons: FC-RT ring finger distal phalanx fx Intake Note: Eleuterio is a 78 yo right hand dominant male who presents today with for a right ring finger distal phalanx fx, DOI about 2 weeks ago, uncertain on exact date. Patient states he fell at home. Denies numbness, tingling, locking on fingers. Denies previous injuries or surgeries to the right hand. Patient states he went to a walk in where he was started on abx. On intake, patient has visible swelling on the right middle and right ring finger, as well as discoloration. Accompanied by: Spouse Allergies sitagliptin [Januvia] Allergy (Intermediate, Verified 11/03/23 14:38) Stomach Upset lisinopril Adverse Reaction (Intermediate, Verified 11/03/23 14:38) hyperkalemia HPI HPI FC-RT ring finger distal phalanx fx: Details: Eleuterio is an 78 year old right hand dominant Diabetic man who presents to discuss his right ring finger distal phalanx fracture, from a fall ~10/21/23. He was seen at a Walk-in clinic on 10/26/23 and placed in a finger splint, as well as given a course of Abx. He complains of pain and swelling to the tip of his ring finger. He denies any numbness or tingling. He has been taking his Abx as instructed. He has a Hx of right middle finger DIP joint osteomyelitis in 2021, which was managed in the hospital with 6 weeks IV Abx. He denies any symptoms or injury to this finger from this fall. He is a Diabetic, which is fairly well-controlled. He denies any smoking. [facility] Medical History Hypoglycemia associated with diabetes PUD (peptic ulcer disease) Hypercholesterolemia Hypertension Peripheral vascular disease BPH (benign prostatic hyperplasia) Type 2 diabetes mellitus with hyperglycemia Surgical History Amputated toe of left foot Previous back surgery Social History Housing: House Alcohol intake: never Patient Tobacco Use Status: Former Tobacco user Tobacco use type: Cigarette e-Cigarette/Vaping Use: Never Used Second Hand Smoke Exposure: No service: No Current occupational status: retired Cognitive needs: No Hearing needs: No Vision needs: No Review of Systems Const All systems reviewed & are unremarkable except as noted in HPI and below Physical Exam Vital Signs: BMI result Body Mass Index 29.5 Const General: cooperative, healthy appearing and no acute distress Orientation/consciousness: patient oriented x3 HEENT Head: Yes normocephalic and Yes atraumatic Eyes EOM: EOMs intact bilaterally Resp Effort & Inspection: normal respiratory effort and able to speak in complete sentences Cardio Jugular venous distension: no JVD Skin General skin exam: turgor normal Rashes: no rashes Neuro General: patient oriented x3 Extrem Other: Evaluation of Right Upper Extremity: The patient is alert, oriented, and in no acute distress Neuro: Median, Ulnar, Radial nerves motor and sensory intact and sensation is normal to the tips of all digits Vascular: Cap refill brisk ROM: He can bring his fingers closed to a fist and back into full extension. He has some active flexion at the ring finger DIP joint, and a slight mallet deformity of ~10 degrees Satisfactory clinical alignment Small subungual hematoma to the ring finger, but the nailplate looks to be in good position. Skin: No lacerations or abrasions. General: No Ecchymosis. No Erythema or evidence of infection. Radiographs: 3 views of the right hand, with attention to the ring finger, were taken and viewed by me today in clinic. They show a comminuted distal phalanx fracture of the ring finger, which extends to the articular surface. Psych Appearance: grossly normal Affect: normal affect Attitude: cooperative Office Procedures Fracture Care Details: Fracture care [id number] Fracture Billing Code: Fracture Billing Code Assessment & Plan Assessment & Plan (1) Fracture of distal phalanx of right ring finger: Code(s): S62.634A - Displaced fracture of distal phalanx of right ring finger, initial encounter for closed fracture Category: Medical (2) Type 2 diabetes mellitus with hyperglycemia: Comment: Dr. Hicks Code(s): E11.65 - Type 2 diabetes mellitus with hyperglycemia Category: Medical Qualifiers: Diabetes mellitus dedicated intermodal truck driver insulin use: with dedicated intermodal truck driver use Qualified Code(s): E11.65 - Type 2 diabetes mellitus with hyperglycemia; Z79.4 - terminal gauger supervisor (current) use of insulin Plan Assessment & Plan: 1. Right ring finger distal phalanx fracture, comminuted From a fall, DOI: 10/21/23 I educated him and his about this condition I believe we can manage this injury non-operatively He was fitted for a short finger spica splint, which allows for motion at the MCP & PIP joints, to be worn when out of the house or at night for the next 3-4 weeks He will work on gentle finger ROM exercises when out of his splint I discussed activity modification, he is to lift nothing heavier than a cellphone for the next 3 weeks He will follow up in 3-4 weeks, with X-rays 3V attn R RF. This may be with me or with AIYANA Reza Anticipate OT referral depending on his ROM 2. Right middle finger Osteomyelitis From 2021, managed with IV Abx at an outside clinic He says his finger feels normal and he has no concerns about this. Scribed for Kayla Herrmann MD by Nickolas Pierre, medical records clerk, on 11/03/23 at 3:20 PM, EST. Orders: Orders XR hand RT min 3V Today M79.641 - Pain in right hand Coding Level of Care Code New Pt Level 3 (51161) Diagnoses Fracture of distal phalanx of right ring finger S62.634A Type 2 diabetes mellitus with hyperglycemia, with long-term current use of insulin E11.65; Z79.4 Diabetes mellitus penitentiary insulin use: with penitentiary use CPT Codes Fracture Care - Fracture Billing Code: Fracture Billing Code ([id number])
[2023-11-03 14:40] VITALS: BMI 29.5
== END 2023-11-03 15:45 | disposition home or self-care (01) ==
PROVIDERS: PCP Internal Medicine; Visit Provider Orthopaedic Surgery
DX: S62.634A Displaced fracture of distal phalanx of right ring finger, initial encounter for closed fracture (principal); E11.65 Type 2 diabetes mellitus with hyperglycemia; Z79.4 Long term (current) use of insulin
CPT/HCPCS: 99203

== ENCOUNTER 2023-11-22 10:29 | Outpatient (AMB) | payer MEDICARE, SELFPAY ==
--- NOTE | 2023-11-22 10:31 | MHC.OFFVIS ---
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 Accompanied by: Spouse Allergies sitagliptin [Januvia] Allergy (Intermediate, Verified 11/03/23 14:38) Stomach Upset lisinopril Adverse Reaction (Intermediate, Verified 11/03/23 14:38) hyperkalemia Medication List - Last Reconciled 11/22/23 by Gerardo Faulkner MD amlodipine 10 mg PO DAILY 90 days aspirin (Adult Aspirin Regimen) 81 mg PO DAILY atenolol 25 mg PO DAILY 90 days atorvastatin 20 mg PO DAILY blood sugar diagnostic As directed check the blood sugar TID blood-glucose meter As directed blood-glucose meter (RegulatoryBinder Ultra2 Meter kit) As directed check the blood sugar TID clopidogrel 75 mg PO DAILY 90 days kb.stocking,knee,reg,xlrg As directed 20-30 mm HG cyanocobalamin (vitamin B-12) 1,000 mcg IM Q4W [Diabetic inserts As directed] [Diabetic shoes As directed] flash glucose scanning reader (FreeStyle Sasha 2 Hartley) As directed flash glucose sensor (FreeStyle Sasha 2 Sensor kit) As directed check the BS TID insulin glargine (Lantus Solostar U-100 Insulin) 40 units (0.4 mL) subcut DAILY isosorbide mononitrate ER 60 mg PO DAILY lactulose 20 grams (30 mL) PO BID lancets (RegulatoryBinder Delica Lancets) As directed check the blood sugar TID pen needle, diabetic (BD Ultra-Fine Mini Pen Needle) As directed three times per day valacyclovir 1,000 mg PO Q8H 7 days HPI Comments Details: Eleuterio comes for follow-up. He says since increasing his isosorbide his symptoms of exertional chest burning have improved. However he is currently not limited by that and says as per the more limited because of his leg tiredness with exertion. Does not exercise much. Taking all his medications. Has not had any follow-up with Cardiothoracic surgery. [facility] Medical History Hypoglycemia associated with diabetes PUD (peptic ulcer disease) Hypercholesterolemia Hypertension Peripheral vascular disease BPH (benign prostatic hyperplasia) Type 2 diabetes mellitus with hyperglycemia Surgical History Amputated toe of left foot Previous back surgery Social History Housing: House Alcohol intake: never Patient Tobacco Use Status: Former Tobacco user Tobacco use type: Cigarette e-Cigarette/Vaping Use: Never Used Second Hand Smoke Exposure: No service: No Current occupational status: retired Cognitive needs: No Hearing needs: No Vision needs: No Review of Systems Const Denies chills, Denies fatigue, Denies fever(s), Denies frequent falls, Denies weakness, Denies weight gain and Denies weight loss ENT Denies dizziness Card Denies chest pain, Denies leg edema, Denies lightheadedness, Denies palpitations, Denies dyspnea and Denies dyspnea on exertion Resp Denies cough, Denies dyspnea and Denies dyspnea on exertion GI Denies hematochezia Musc Denies abnormal gait, Denies muscle weakness, Denies numbness, Denies radiating pain into limb and Denies tingling Neuro Denies Abnormal speech present, Denies abnormal gait, Denies dizziness, Denies frequent falls, Denies numbness, Denies tingling and Denies weakness Endo Denies fatigue and Denies palpitations Physical Exam Vital Signs: Last Vital Signs Pulse 53 11/22/23 10:32 BP 130/62 11/22/23 10:32 BMI result Body Mass Index 30.6 Const General: cooperative, comfortable, no acute distress, alert, awake, Physically active and well groomed Nutritional Appearance: overweight Orientation/consciousness: patient oriented x3 Limitations: no limitations HEENT Head: Yes normocephalic and Yes atraumatic Neck Neck: Yes trachea midline, Yes supple and Yes no JVD Resp Effort & Inspection: normal respiratory effort Auscultation: clear to auscultation bilaterally Cardio Jugular venous distension: no JVD Palpation: normal PMI Rate: regular rate Rhythm: regular rhythm Heart sounds: S1 normal heart sound present, S2 normal heart sound present, no click, no gallops, no murmurs and no rubs GI Auscultation: normal bowel sounds Skin General skin exam: no rashes or lesions noted Neuro General: patient oriented x3 and no focal motor deficits Speech: No Abnormal speech present Extrem General: Yes no clubbing, cyanosis or edema Psych Appearance: grossly normal Assessment & Plan Assessment & Plan (1) CAD (coronary artery disease): Comment: Stent placement 1989, 2004, cardiac cath 2022 multivessel disease Code(s): I25.10 - Atherosclerotic heart disease of [place] coronary artery without angina pectoris Category: Medical Qualifiers: Coronary Disease-Associated Artery/Lesion type: [place] artery [place] vs. transplanted heart: [place] heart Associated angina: without angina Qualified Code(s): I25.10 - Atherosclerotic heart disease of [place] coronary artery without angina pectoris Plan: CAD with symptoms angina with preserved LV systolic function, with diffuse three-vessel coronary disease not amenable to PCI. Currently symptom-free on increased antianginal therapy. Advised to continue the same. Advised to increase activity level as tolerated. Given his high risk for surgical intervention with Cardiothoracic surgery given his advanced kidney disease, discussed management to pursue medical treatment. He is more in line with this. Does not want to have complications related to Cardiothoracic surgery including renal failure and need for dialysis. This was discussed. Advised to call me with worsening symptoms. Continue low-dose aspirin therapy for life. Continue aggressive blood pressure control which is currently well optimized. Currently on dual antiplatelet therapy. Continue manage diabetes aggressively goal hemoglobin A1c less than 7%. Goal LDL less than 70 mg/dL. Follow up in the clinic in 6 months time, sooner p.r.n.. Thank you for allowing me to partake in his care Coding Level of Care Code Est Pt Level 4 (06806) Diagnoses Coronary artery disease involving [place] coronary artery of [place] heart without angina pectoris I25.10 Coronary Disease-Associated Artery/Lesion type: [place] artery [place] vs. transplanted heart: [place] heart Associated angina: without angina
[2023-11-22 10:32] VITALS: BP 130/62; PULSE 53; BMI 30.6
== END 2023-11-22 10:54 | disposition home or self-care (01) ==
PROVIDERS: PCP Internal Medicine; Visit Provider Internal Medicine Cardiovascular Disease
DX: I25.10 Atherosclerotic heart disease of native coronary artery without angina pectoris (principal)
CPT/HCPCS: 99214

== ENCOUNTER → 2023-11-22 10:29 | Outpatient (BNVA) | payer MEDICARE, SELFPAY | PROVIDERS: PCP Internal Medicine; Visit Provider Internal Medicine Cardiovascular Disease | DX: I25.10 Atherosclerotic heart disease of native coronary artery without angina pectoris (principal) | CPT/HCPCS: 99212 ==

== ENCOUNTER 2023-11-29 08:41 | Outpatient (AMB) | payer MEDICARE, SELFPAY ==
--- NOTE | 2023-11-29 08:44 | AM.OFFVISNUR ---
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
== END 2023-11-29 08:56 | disposition home or self-care (01) ==
PROVIDERS: PCP Internal Medicine; Visit Provider Internal Medicine
DX: E53.8 Deficiency of other specified B group vitamins (principal)
CPT/HCPCS: 96372; J3420